=== PATIENT | female | born 2000 | race Hispanic/Latino ===

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

== ENCOUNTER 2020-05-31 22:40 | Emergency (ER) | payer OTHER ==
[2020-05-31 23:24] LABS: Absolute Lymphocytes (CBC) 5.6 K/uL (0.7-4.9); Basophils % 0.3 % (0-1.3); Lymphocytes % 42.4 % (15.3-44.8); MPV 8.3 fL (7.6-11.3)
[2020-05-31 23:40] LABS: ALT/SGPT 21 U/L (12-78); AST/SGOT 12 U/L (15-37); Albumin 4.3 g/dL (3.4-5.0); Alkaline Phosphatase 91 U/L (45-117); BUN Blood Urea Nitrogen 5 mg/dL (7-18); Bicarbonate 24 mmol/L (21-32); Bilirubin Direct < 0.1 mg/dL (0-0.2); Bilirubin Total 0.4 mg/dL (0.2-1.0); Glucose Level 97 mg/dL (74-106); Lipase 70 U/L (73-393); Potassium 3.7 mmol/L (3.5-5.1); Sodium Level 141 mmol/L (136-145)
[2020-06-01 00:39] LABS: Urine Blood 2+ (NEG); Urine Glucose NEGATIVE (NEG); Urine Protein NEGATIVE (NEG)
[2020-06-01 00:42] LABS: Urine Bacteria <20 /HPF (<20); Urine RBC <5 /HPF (NONE SEEN)
--- NOTE | 2020-06-01 00:42 | ER ---
Nurse's Notes [facility] Name: Chely Dhillon Age: 19 yrs Sex: Female : 2000 Arrival Date: 05/31/2020 Time: 22:45 Bed 23 Private MD: Diagnosis: Generalized abdominal pain;Urinary tract infection, site not specified Presentation: 05/31 22:55 Chief complaint: Patient states: For about 2 days now, I have had some urinary sg frequency and pain with urination. My job has a little clinic so I checked in to be seen there and they did a urine test and told me that everything was normal with it. Im having intermittent pain under my ribs on both sides, and it feels like acid reflux so I have been taking medication to help with that and it is not helping. no other symptoms reported for triage at this time. Coronavirus screen: Client denies travel out of the [place] in the last 14 days. At this time, the client does not indicate any symptoms associated with coronavirus-19. Ebola Screen: Patient negative for fever greater than or equal to 101.5 degrees Fahrenheit, and additional compatible Ebola Virus Disease symptoms Patient denies exposure to infectious person. Patient denies travel to an Ebola-affected area in the 21 days before illness onset. No symptoms or risks identified at this time. Initial Sepsis Screen: Does the patient meet any 2 criteria? No. Patient's initial sepsis screen is negative. Does the patient have a suspected source of infection? No. Patient's initial sepsis screen is negative. Risk Assessment: Do you want to hurt yourself or someone else? Patient reports no desire to harm self or others. Onset of symptoms was May 31, 2020. Care prior to arrival: None. Transition of care: patient was not received from another setting of care. 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 - Social history:: Smoking status: Patient denies any tobacco usage or history of. Screenin:05 Abuse screen: Denies threats or abuse. Denies injuries from another. Nutritional sf screening: No deficits noted. Tuberculosis screening: No symptoms or risk factors identified. Never had TB. Possible symptoms: None Risk factors: None. Fall Risk None identified. No fall in past 12 months (0 pts). No secondary diagnosis (0 pts). IV access (20 points). Ambulatory Aid- None/Bed Rest/Nurse Assist (0 pts). Gait- Normal/Bed Rest/Wheelchair (0 pts) Mental Status- Oriented to own ability (0 pts). Total Garcia Fall Scale indicates No Risk (0-24 pts). Assessment: 23:03 General: Appears in no apparent distress. comfortable, Behavior is calm, cooperative, sf appropriate for age. Pain: Complains of pain in left mid back, right mid back and diaphragm Pain currently is 8 out of 10 on a pain scale. Aggravated by urinating. Neuro: No deficits noted. Level of Consciousness is awake, alert, Oriented to person, place, time, situation. Cardiovascular: No deficits noted. Patient's skin is warm and dry. Respiratory: No deficits noted. Airway is patent Respiratory effort is even, unlabored, Respiratory pattern is regular, symmetrical. GI: Abdomen is non-distended, Bowel sounds present X 4 quads. Abd is soft and non tender X 4 quads. : Urine is clear, Reports burning with urination, urinary frequency, Denies discharge, urgency, vaginal bleeding, vaginal itching. 23:30 Reassessment: Called lab to add on micro to urine sample. Vital Signs: 22:55 Weight 59.87 kg (R); Height 5 ft. 1 in. (154.94 cm); sg 23:57 BP 106 / 64; Pulse 99; Resp 16; Pulse Ox 99% ; sf 06/01 00:30 BP 108 / 74; Pulse 71; Resp 16; Pulse Ox 100% ; sf 05/31 22:55 Body Mass Index 24.94 (59.87 kg, 154.94 cm) ED Course: 05/31 22:45 Patient arrived in ED. am4 22:47 Jaren Cruz PA is PHCP. aram 22:47 Miah Barrera MD is Attending Physician. jmm 22:56 Walker Martinez, ISRA is Primary Nurse. sf 22:57 Triage completed. sg 22:58 Arm band placed on. sg 23:05 Urine collected: clean catch specimen, clear. sf 23:10 Patient has correct armband on for positive identification. Placed in gown. Bed in low sf position. Call light in reach. Side rails up X 1. Door closed. Noise minimized. Visitors limited. Lights dimmed. Warm blanket given. Verbal reassurance given. 23:15 Initial lab(s) drawn, by me, sent to lab. Inserted saline lock: 20 gauge in right sf antecubital area, using aseptic technique. Blood collected. 23:21 Lipase Sent. sf 23:21 Hepatic Function Sent. sf 23:22 CBC with Diff Sent. sf 23:22 Basic Metabolic Panel Sent. sf 23:34 Urine --Ancillary (enter results) Sent. sf 23:34 Urine Dipstick--Ancillary (enter results) Sent. sf 23:35 Urine Microscopic Only Sent. sf 23:35 CT Abd/Pelvis - IV Contrast Only Sent. sf 23:49 Inserted saline lock: 20 gauge in left antecubital area, using aseptic technique. zb 03/02 00:03 IV discontinued, intact, bleeding controlled, No redness/swelling at site. Pressure sf dressing applied, Right AC IV D/C only at this time due to reports of pain. 00:04 CT Abd/Pelvis - IV Contrast Only In Process Unspecified. EDMS 00:44 No provider procedures requiring assistance completed. sf 00:58 IV discontinued, intact, bleeding controlled, No redness/swelling at site. Pressure sf dressing applied, left AC IV. Administered Medications: 00:55 Drug: Pepcid 20 mg Route: IVP; Site: left antecubital; sf 01:03 Follow up: Response: Medication administered at discharge. sf 00:56 Drug: Bentyl 20 mg Route: PO; sf 01:02 Follow up: Response: Medication administered at discharge. sf 00:56 Drug: Cephalexin 500 mg Route: PO; sf 01:02 Follow up: Response: Medication administered at discharge. Outcome: 00:41 Discharge ordered by . [facility] 01:01 Discharged to home ambulatory. sf 01:01 Condition: stable 01:01 Discharge instructions given to patient, Instructed on discharge instructions, follow up and referral plans. medication usage, Demonstrated understanding of instructions, follow-up care, medications, Prescriptions given X 3. 01:04 Patient left the ED. sf Signatures: Dispatcher [employer] EDWalker Bello, RN RN Jaren Jacobo PA PA jmm Brown, Zipporah, RN RN zb Martinez, Ashley [facility] Walker Martinez, RN RN sf
--- NOTE | 2020-06-01 00:42 | EDPHYS ---
Physician Documentation [facility] Name: Chely Dhillon Age: 19 yrs Sex: Female : 2000 Arrival Date: 05/31/2020 Time: 22:45 Bed 23 Private MD: ED Physician Miah Barrera HPI: 05/31 22:21 This 19 yrs old Female presents to ER via Ambulatory with complaints of Pain jmm With Urination, Urinary Frequency. 22:21 The patient presents with abdominal pain in the epigastric area. Onset: The jmm symptoms/episode began/occurred gradually. 23:35 The symptoms radiate to right back. Associated signs and symptoms: Pertinent positives: jmm dysuria, Pertinent negatives: fever. The symptoms are described as achy. This is a 19 year old female with a history of anemia, fibromyalgia, GERD that presents to the ED with complaints of epigastric pain for over 1 week. Denies vomiting, diarrhea, or fever. Patient developed dysuria around 0200.. 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 - Social history:: Smoking status: Patient denies any tobacco usage or history of. ROS: 23:35 Constitutional: Negative for fever, chills, and weight loss, Cardiovascular: Negative jmm for chest pain, palpitations, and edema, Respiratory: Negative for shortness of breath, cough, wheezing, and pleuritic chest pain. 23:35 Abdomen/GI: Positive for abdominal pain. 23:35 All other systems are negative. Exam: 23:35 Constitutional: This is a well developed, well nourished patient who is awake, alert, jmm and in no acute distress. Head/Face: atraumatic. Eyes: EOMI, no conjunctival erythema appreciated ENT: Moist Mucus Membranes Neck: Trachea midline, Supple Chest/axilla: Normal chest wall appearance and motion. Cardiovascular: Regular rate and rhythm. No edema appreciated Respiratory: Normal respirations, no respiratory distress appreciated 23:35 Back: Normal ROM Skin: General appearance color normal MS/ Extremity: Moves all extremities, no obvious deformities appreciated, no edema noted to the lower extremities Neuro: Awake and alert, normal gait Psych: Behavior is normal, Mood is normal, Patient is cooperative and pleasant 23:35 Abdomen/GI: Inspection: abdomen appears normal, Bowel sounds: normal, Palpation: soft, mild abdominal tenderness, in the epigastric area. Vital Signs: 22:55 Weight 59.87 kg (R); Height 5 ft. 1 in. (154.94 cm); sg 23:57 BP 106 / 64; Pulse 99; Resp 16; Pulse Ox 99% ; 06/01 00:30 BP 108 / 74; Pulse 71; Resp 16; Pulse Ox 100% ; 05/31 22:55 Body Mass Index 24.94 (59.87 kg, 154.94 cm) sg MDM: 05/31 22:51 Patient medically screened. [facility] 06/01 00:40 Data reviewed: vital signs, nurses notes. Counseling: I had a detailed discussion with [facility] the patient and/or guardian regarding: the historical points, exam findings, and any diagnostic results supporting the discharge/admit diagnosis, lab results, radiology results, the need for outpatient follow up, to return to the emergency department if symptoms worsen or persist or if there are any questions or concerns that arise at home. ED course: Patient is alert and non toxic in appearance in the ED. CT is negative. Patient is advised to follow up with GI for further evaluation. Patient understood and agrees with the plan of care. . 05/31 22:57 Order name: Basic Metabolic Panel [facility] 05/31 22:57 Order name: CBC with Diff [facility] 05/31 22:57 Order name: Hepatic Function [facility] 05/31 22:57 Order name: Lipase [facility] 05/31 23:23 Order name: Urine Dipstick--Ancillary (enter results); Complete Time: 17:19 tt3 05/31 23:23 Order name: Urine --Ancillary (enter results); Complete Time: 17:19 tt3 05/31 23:21 Order name: CT Abd/Pelvis - IV Contrast Only; Complete Time: 17:19 [facility] 05/31 23:25 Order name: CBC with Automated Diff; Complete Time: 23:32 [facility] 05/31 23:26 Order name: Urine Microscopic Only; Complete Time: 17:19 [facility] 05/31 23:40 Order name: Basic Metabolic Panel; Complete Time: 23:52 [facility] 05/31 23:40 Order name: Liver (Hepatic) Function; Complete Time: 23:52 [facility] 05/31 23:40 Order name: Lipase; Complete Time: 23:52 [facility] 06/01 00:43 Order name: Urine Culture [facility] 05/31 22:57 Order name: IV Saline Lock; Complete Time: 23:21 [facility] 05/31 22:57 Order name: Labs collected and sent; Complete Time: 23:21 [facility] 05/31 22:57 Order name: Urine Dipstick-Ancillary (obtain specimen); Complete Time: 23:08 [facility] 05/31 22:57 Order name: Urine Test (obtain specimen); Complete Time: 23:08 [facility] Administered Medications: 00:55 Drug: Pepcid 20 mg Route: IVP; Site: left antecubital; sf 01:03 Follow up: Response: Medication administered at discharge. sf 00:56 Drug: Bentyl 20 mg Route: PO; sf 01:02 Follow up: Response: Medication administered at discharge. sf 00:56 Drug: Cephalexin 500 mg Route: PO; sf 01:02 Follow up: Response: Medication administered at discharge. sf Disposition: 06:33 Co-signature as Attending Physician, Miah Barrera MD I agree with the assessment and lilly plan of care. Disposition: 06/01/20 00:41 Discharged to Home. Impression: Generalized abdominal pain, Urinary tract infection, site not specified. - Condition is Stable. - Discharge Instructions: Abdominal Pain, Adult, Urinary Tract Infection, Adult. - Prescriptions for Bentyl 20 mg Oral Tablet - take 2 tablet by ORAL route every 6 hours As needed; 40 tablet. Cephalexin 500 mg Oral Capsule - take 1 capsule by ORAL route every 8 hours for 10 days; 30 capsule. Pepcid 20 mg Oral Tablet - take 1 tablet by ORAL route once daily; 20 tablet. - Medication Reconciliation Form, Thank You Letter, Antibiotic Education, Prescription Opioid Use form. - Follow up: Private Physician; When: 2 - 3 days; Reason: Recheck today's complaints, Continuance of care, Re-evaluation by your physician. Signatures: Dispatcher [employer] EDWalker Bello, Miah Berumen RN, MD MD cha Mickail, Joel, PA PA jmm Fitzpatrick, Steven, ISRA DHALIWAL sf Corrections: (The following items were deleted from the chart) 01:04 00:41 06/01/2020 00:41 Discharged to Home. Impression: Generalized abdominal pain; sf Urinary tract infection, site not specified. Condition is Stable. Forms are Medication Reconciliation Form, Thank You Letter, Antibiotic Education, Prescription Opioid Use. Follow up: Private Physician; When: 2 - 3 days; Reason: Recheck today's complaints, Continuance of care, Re-evaluation by your physician. aram
[2020-06-01] MEDS ORDERED: CEPHALEXIN 250 MG CAP ONE (01:09)
[2020-06-01] MEDS ORDERED: FAMOTIDINE 20 MG/2 ML VIAL IV ONE (01:09)
[2020-06-01] MEDS ORDERED: DICYCLOMINE HCL 10 MG CAP ONE (01:09)
--- NOTE | 2020-06-01 10:09 | RAD REPORT ---
EXAM DESCRIPTION: CT - Abdomen Pelvis W Contrast - 06/01/2020 6:55 am CLINICAL HISTORY: 19 years Female EPIGASTRIC PAIN COMPARISON: 10/29/2019. TECHNIQUE: Contiguous axial images obtained through the abdomen and pelvis following IV contrast. Re formatted images obtained. This exam was performed according to our department optimization program which includes automated exp osure control, adjustment of the mA and/or kv according to patient size and/or use of iterative recon struction technique. FINDINGS: The lung bases are clear. There is a focal area of enhancement in the posterior liver which could be from a hemangioma. The spleen and pancreas appear unremarkable. No adrenal masses. The kidneys appear unremarkable. No hydronephrosis. The gallbladder is visualized. No aneurysmal dilatation of the aorta. No bowel obstruction. The appendix is not visualized secondary to previous appendectomy. Minimal free fluid in the pelvis likely physiologic. IMPRESSION: There is a focal area of enhancement in the posterior liver which could be from a francisco ioma. Minimal free fluid in the pelvis likely physiologic. Electronically signed by: Ruiz Borden MD 06/01/2020 12:19 AM VISUAL SUPERVISOR Due to temporary technical issues with the PACS/Fluency reporting system, reports are being signed by the in house radiologists without review as a courtesy to insure prompt reporting. The interpreting radiologist is fully responsible for the content of the report.
== END 2020-06-01 01:04 | disposition home or self-care (01) ==
LOC: ER 22:40
DX: N39.0 Urinary tract infection, site not specified (principal); K21.9 Gastro-esophageal reflux disease without esophagitis; Z91.02 Food additives allergy status; Z91.040 Latex allergy status; Z91.048 Other nonmedicinal substance allergy status
CPT/HCPCS: 87088; 85025; 87086; 80048; 36415; 81025; 80076; 87077; 87186; 83690; 74177; 96374; 99284; Q9967; 81003; 81015

== ENCOUNTER 2021-06-12 19:19 | Emergency (ER) | payer OTHER ==
--- OUTSIDE RECORDS SUMMARY | 2021-06-12 19:23 | XMS REPORT | Continuity of Care Document ---
:2000 Author Organization [facility] t Address [address] [place] [address] Care Team Providers Name Role Phone Astrid Shook Primary Care Physician Veronica Gomes Attending Clinician Unavailable Dennise Maciel MD Attending Clinician Pob, Lab Main Attending Clinician Unavailable JOSH MACIEL Attending Clinician Unavailable 2, Lab Attending Clinician Unavailable Sri DWYER Attending Clinician Doctor Unassigned, Name Attending Clinician Unavailable Payers Payer Name Policy Type Policy Number Effective Date Expiration Date S ource Problems Condition Condition Condition Status Onset Resolution Last Treating Co mments Source Name Details Category Date Date Treatment Clinician Date Disease Active Uni vers with with 3-10 [place] of inconclus[place] Med[place] viability, viability, Br anch single or single or unspecifie unspecifie d fetus d fetus Pelvic Pelvic Disease Active Univers cramping cramping 3-10 ity of in in 00:00: [place] antepartum antepartum 00 Me dical period period Branch Allergies, Adverse Reactions, Alerts Allergy Allergy Status Severity Reaction(s) Onset Inactive Treating Comm ents Source Name Type Date Date Clinician LATEX DRUG Active High Hives 2017-04 Univers INGREDI 2-07 ity of 00:00: [place] 00 Medical Branch Latex Propensi Active Rash 2017-04 Univers ty to - ity of adverse 00:00: [place] reaction 00 Medical s Branch Social History Social Habit Start Date Stop Date Quantity Comments Source ASSERTION [facility] Exposure to Not sure University SARS-CoV-2 [place] [facility] (event) Branch Alcohol intake 2021-06-09 2021-06-09 Current [facility] 00:00:00 00:00:00 non-drinker of [facility] alcohol [place] (finding) Tobacco use and 2018-03-08 2018-03-08 Never used Universit y of exposure 00:00:00 00:00:00 [facility] Sex Assigned At [birth year] Universit y of 00:00:00 00:00:00 [facility] Smoking Status Start Date Stop Date Source Never smoker [facility] Medications Ordered Filled Start Stop Current Ordering Indication Dosage Frequency Signature Comments Components Source Medication Medication Date Date Medication? Clinician (SIG) Name Name metroNIDAZO 2021- Yes [id number] 500mg Take 1 Univers LE (FLAGYL) 3-13 03-21 tablet by it y of 500 mg 00:00: 04:59 mouth 2 [place] tablet 00 :00 (two) Medical times Branch daily for 7 days. PNV 67-iron Yes [id number] 1{capsu Take 1 Univers ps-folate 3-10 le} capsule by ity of no.1-dha 00:00: mouth [place] (VITAFOL 00 daily. Medical ULTRA) 29 Branch mg iron- 1 mg-200 mg Cap PNV 67-iron Yes [id number] 1{capsu Take 1 Univers ps-folate 3-10 le} capsule by ity of no.1-dha 00:00: mouth [place] (VITAFOL 00 daily. Medical ULTRA) 29 Branch mg iron- 1 mg-200 mg Cap PNV 67-iron Yes [id number] 1{capsu Take 1 Univers ps-folate 3-10 le} capsule by ity of no.1-dha 00:00: mouth [place] (VITAFOL 00 daily. Medical ULTRA) 29 Branch mg iron- 1 mg-200 mg Cap norelgestro 2021- No 1{patch Apply 1 Univers min-ethinyl 8-18 03-10 } Patch to ity of estradiol 00:00: 00:00 skin [place] 150-35 00 :00 weekly. Medical mcg/24 hr Branch patch ondansetron 2019-04- No [id number] 8mg Take 1 Univers (ZOFRAN 1-23 03-10 tablet by ity of ODT) 8 mg 00:00: 00:00 mouth [place] disintegrat 00 :00 every 8 Medic al ing tablet (eight) Branch hours as needed for Nausea and Vomiting (N/V). fluticasone 2018-04 Yes [id number] 2{spray Use 2 Univers propionate 0-08 } Sprays in ity of 50 00:00: each [place] mcg/actuati 00 nostril Medic al on nasal daily. Branch spray fluticasone 2018-04 Yes [id number] 2{spray Use 2 Univers propionate 0-08 } Sprays in ity of 50 00:00: each [place] mcg/actuati 00 nostril Medic al on nasal daily. Branch spray fluticasone 2018-04 Yes [id number] 2{spray Use 2 Univers propionate 0-08 } Sprays in ity of 50 00:00: each [place] mcg/actuati 00 nostril Medic al on nasal daily. Branch spray hydrOXYzine 2021- No [id number] 25mg Take 1 Univers 25 mg 7-30 03-10 tablet by ity of tablet 00:00: 00:00 mouth [place] 00 :00 every 8 Medical (eight) Branch hours as needed for Itching. gabapentin 2021- No 200mg Take 200 U nivers 100 mg 9-20 03-10 mg by ity of capsule 00:00: 00:00 mouth. [place] 00 :00 Medical Branch cyclobenzap 2021- No 5mg Take 5 mg Univers rine 5 mg 9-20 03-10 by mouth. ity of tablet 00:00: 00:00 [place] 00 :00 Medical Branch Immunizations Ordered Filled Immunization Date Status Comments Sour e Immunization Name Name Influenza Virus 2021-06-09 Completed Universit y of Vaccine Quad IM, 00:00:00 [place] Me dical Preserv and ABX Branch Free 6 MO-64 YRS Influenza Virus 2021-06-09 Completed Universit y of Vaccine Quad IM, 00:00:00 [facility] dical Preserv and ABX Branch Free 6 MO-64 YRS Influenza Virus 2021-06-09 Completed Universit y of Vaccine Quad IM, 00:00:00 [facility] dical Preserv and ABX Branch Free 6 MO-64 YRS Influenza Virus 2013-02-10 Completed Universit y of Vaccine (3+ yrs) 00:00:00 [facility] dicpr Branch Influenza Virus 2013-02-10 Completed Universit y of Vaccine (3+ yrs) 00:00:00 [facility] dical Branch Influenza Virus 2013-02-10 Completed Universit y of Vaccine (3+ yrs) 00:00:00 [facility] Vital Signs Vital Name Observation Time Observation Value Comments Source Systolic blood 2021-06-09 15:41:00 129 mm[Hg] [facility] sity of [facility] Diastolic blood 2021-06-09 15:41:00 84 mm[Hg] [facility] 2021-06-09 15:41:00 78 /min [facility] Body temperature 2021-06-09 15:41:00 36.83 Adelia [facility] Respiratory rate 2021-06-09 15:41:00 18 /min [facility] Body height 2021-06-09 15:41:00 154.9 cm [facility] Body weight 2021-06-09 15:41:00 66.225 kg [facility] BMI 2021-06-09 15:41:00 27.59 kg/m2 [facility] Procedures Procedure Date / Time Performed Performing Clinician [facility] FLU VACC (), 2021-06-09 16:00:37 Dennise Maciel [facility] 2-64 YRS, .5ML, IM, Medical Bran ch QUAD (FLUCELVAX) Plan of Care Planned Activity Planned Date Details Comments Source Encounters Start End Encounter Admission Attending Care Care Encounter Source Date/Time Date/Time Type Type Clinicians Facility Department ID 2021-05-10 Outpatient Eliseo, STLMLC STLM [id number] [facility] 08:15:04 [facility] 2021-04-27 Outpatient Snyder, STLMLC STLMLC [id number] [facility] 14:26:00 [id number] 2021-06-12 2021-06-12 Case Dennise Maciel [facility] [id number] Univers 00:00:00 00:00:00 Management Josh NUGENT [id number] ity [id number] PROF[place] [phone] Sc dical NAL [facility] 2021-06-11 2021-06-11 Laser Operator Joe, Adc Lab Main [facility] [id number] Univers 10:00:00 10:15:00 Visit Dennise Maciel [id number] [id number] [phone] Sc dical NAL [facility] 2021-06-11 2021-06-11 Outpatient R DENNISE MACIEL [facility] [id number] Univers 10:00:00 10:00:00 ity of [facility] 2021-06-09 2021-06-09 Office Dennise Maciel [facility] [id number] Univers 09:30:00 10:15:20 Visit Josh NUGENT [id number] i [id number] PROF[place] [phone] Sc dical NAL [facility] 2021-06-09 2021-06-09 Outpatient R DENNISE MACIEL [facility] [id number] Univers 09:30:00 10:15:20 ity of [facility] 2021-05-09 2021-05-09 ambulatory STLMLC [facility]C [id number] [facility] 2021-05-03 2021-05-03 ambulatory STLMLC [facility] [id number] [facility] 2021-03-17 2021-03-17 ambulatory STLMLC [facility]LMLC [id number] [facility] 00:[facility]00 Evaristo Brynn [facility] 2019-10-20 2019-10-20 Laser Operator 2, Adc Lab [facility] [id number] 09:34:48 09:49:48 Visit James [id number] Ailyn [id number] Professio [phone] [facility] 353 [facility] 2019-10-20 2019-10-20 Office Sri [facility] [id number] 08:02:01 08:58:39 Visit Diamond Nugent [id number] [place] [id number] Professio [phone] [facility] 134 [facility] 2019-10-20 2019-10-20 Orders Doctor DERRICK [id number] 00:00:00 00:00:00 Only Unassigned, POLLO [id number] [place] [facility] [phone] [id number] Results This patient has no known results.
[2021-06-12 19:52] LABS: Urine Blood Negative (Negative); Urine Glucose Negative (Negative); Urine Protein Negative (Negative); Urine Specific Gravity 1.015 (1.005-1.030); Urine pH 7.5 (5.0-7.0)
[2021-06-12] MEDS ORDERED: MORPHINE 2 MG/ML SYR ONE (20:10)
[2021-06-12] MEDS ORDERED: NA CHLORIDE 0.9% 1,000 ML ONE (20:10)
[2021-06-12] MEDS ORDERED: ONDANSETRON 4 MG/2 ML VIAL ONE (20:10)
[2021-06-12 20:23] LABS: Absolute Lymphocytes (CBC) 3.8 K/uL (0.7-4.9); Hematocrit 37.2 % (36.0-45.0); Lymphocytes % 44.3 % (15.3-44.8); MPV 8.2 fL (7.6-11.3)
[2021-06-12 20:50] LABS: BUN Blood Urea Nitrogen 6 mg/dL (7-18); Bicarbonate 25 mmol/L (21-32); Glucose Level 92 mg/dL (74-106); Potassium 3.6 mmol/L (3.5-5.1); Sodium Level 139 mmol/L (136-145)
[2021-06-12 21:21] LABS: HCG, Quantitative 500 mIU/mL (1-3)
--- NOTE | 2021-06-12 21:25 | RAD REPORT ---
EXAM DESCRIPTION: US - Transvaginal OB - 06/12/2021 9:11 pm CLINICAL HISTORY: PAIN COMPARISON: No comparisons FINDINGS: Small collection of fluid within the endometrial canal measuring 4 millimeters. No yolk sa c or pole identified. If a gestational sac, it would be consistent with 5 weeks 0 days but ther e is no definite dedicual reaction. The left ovary has volume of 13.7 cc and demonstrates blood flow. The right ovary was not visualized. IMPRESSION: Possible early gestational sac which would measure 5 weeks 0 days but the imaging featur es are not conclusive. Recommend correlation with beta HCG and could consider a short term follow-up in 1-2 weeks.
--- NOTE | 2021-06-12 22:22 | ER ---
Nurse's Notes [facility] Name: Chely Dhillon Age: 20 yrs Sex: Female : 2000 Arrival Date: 06/12/2021 Time: 19:27 Bed 24 Private MD: Diagnosis: Less than 8 weeks gestation of ;Nausea Presentation: 06/12 19:36 Chief complaint: Patient states: "I've been having abdominal cramping and pelvic pain, ab2 I just found out I am 6 weeks ." Pt states this is first . Pt denies any vaginal bleeding or discharge. Coronavirus screen: Vaccine status: Patient reports receiving the 2nd dose of the covid vaccine. Client denies travel out of the [place] in the last 14 days. At this time, the client does not indicate any symptoms associated with coronavirus-19. Ebola Screen: Patient negative for fever greater than or equal to 101.5 degrees Fahrenheit, and additional compatible Ebola Virus Disease symptoms Patient denies exposure to infectious person. Patient denies travel to an Ebola-affected area in the 21 days before illness onset. No symptoms or risks identified at this time. Initial Sepsis Screen: Does the patient meet any 2 criteria? No. Patient's initial sepsis screen is negative. Does the patient have a suspected source of infection? No. Patient's initial sepsis screen is negative. Risk Assessment: Do you want to hurt yourself or someone else? Patient reports no desire to harm self or others. Onset of symptoms is unknown. 19:36 Method Of Arrival: Ambulatory ab2 19:36 Acuity: MIRTHA 3 ab2 Triage Assessment: 19:39 General: Appears in no apparent distress. uncomfortable, Behavior is calm, cooperative, ab2 appropriate for age. Pain: Complains of pain in suprapubic area. GI: Abdomen is round non-distended, Reports nausea. 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 - Social history:: Smoking status: Patient denies any tobacco usage or history of. Screenin:42 Abuse screen: Denies threats or abuse. Nutritional screening: No deficits noted. lr4 Tuberculosis screening: No symptoms or risk factors identified. Fall Risk None identified. Assessment: 19:41 General: Appears in no apparent distress. comfortable, Behavior is calm, cooperative. lr4 Pain: Complains of pain in abdomen Pain currently is 5 out of 10 on a pain scale. Quality of pain is described as crampy. Neuro: No deficits noted. Cardiovascular: No deficits noted. Respiratory: No deficits noted. GI: Bowel sounds present X 4 quads. Abd is soft and non tender X 4 quads. Vital Signs: 19:36 BP 127 / 79; Pulse 82; Resp 18; Temp 98.8(TE); Pulse Ox 100% on R/A; Weight 65.77 kg; ab2 Height 5 ft. 1 in. (154.94 cm); Pain 0/10; 22:24 BP 103 / 57; Pulse 67; Resp 17; Pulse Ox 99% on R/A; lr4 19:36 Body Mass Index 27.40 (65.77 kg, 154.94 cm) ab2 ED Course: 19:27 Patient arrived in ED. wm 19:38 Triage completed. ab2 19:39 Arm band placed on right wrist. ab2 19:40 Frank Sheppard MD is Attending Physician. 7 19:41 Cielo Rosado RN is Primary Nurse. lr4 19:42 No provider procedures requiring assistance completed. lr4 19:44 Patient has correct armband on for positive identification. Bed in low position. Call lr4 light in reach. Side rails up X 1. 19:52 Urine Dipstick-Ancillary Sent. lr4 19:56 Inserted saline lock: 20 gauge in right antecubital area, using aseptic technique. lr4 20:11 HCG, Quantitative Sent. ab2 20:11 ABO/RH typing Sent. ab2 20:11 Basic Metabolic Panel Sent. ab2 20:11 Abo/rh Typing Sent. ab2 20:11 Basic Metabolic Panel Sent. ab2 20:11 Quantitative Hcg Sent. ab2 20:11 CBC with Diff Sent. ab2 21:11 US Transvaginal Ob In Process Unspecified. EDMS 22:20 Moses Raya MD is Referral Physician. [facility] 22:24 IV discontinued, intact, bleeding controlled, No redness/swelling at site. Pressure lr4 dressing applied. Administered Medications: 20:11 Drug: NS 0.9% 1000 ml Route: IV; Rate: 1000 ml; Site: right antecubital; ab2 22:30 Follow up: IV Status: Order to discontinue infusion; IV Intake: 400ml lr4 20:11 Drug: Zofran (Ondansetron) 4 mg Route: IVP; Site: right antecubital; ab2 20:51 Follow up: Response: Nausea is decreased lr4 20:11 Drug: morphine 2 mg Route: IVP; Site: right antecubital; ab2 20:52 Follow up: Response: Pain is decreased lr4 Intake: 22:30 IV: 400ml; Total: 400ml. lr4 Outcome: 19:42 Condition: stable lr4 22:21 Discharge ordered by . [facility] 22:24 Discharged to home ambulatory. lr4 22:24 Discharge instructions given to patient, family. 22:30 Patient left the ED. lr4 Signatures: Dispatcher [employer] Frank Cartwright MD MD [facility] Marine Zheng Alexis 2 Cielo Rosado, RN RN lr4 Corrections: (The following items were deleted from the chart) 19:39 19:38 Home Meds: Nexplanon Implant for Family Planning; ab2 ab2 19:39 19:38 PMHx: GERD; ab2 ab2 19:44 19:43 Home Meds: Nexplanon Implant for Family Planning; lr4 lr4
--- NOTE | 2021-06-12 22:22 | EDPHYS ---
Physician Documentation [facility] Name: Chely Dhillon Age: 20 yrs Sex: Female : 2000 Arrival Date: 06/12/2021 Time: 19:27 Bed 24 Private MD: ED Physician Frank Sheppard HPI: 06/12 19:58 This 20 yrs old Female presents to ER via Ambulatory with complaints of mh7 Abdominal Pain, 6WKS. 19:58 The patient presents to the emergency department with abdominal pain, of the suprapubic mh7 area, that started 5 day(s) ago, nausea. The estimated gestational age is 6 weeks. course: care: private OB physician, the patient's last check was June 07, 2021, Leakage of Fluid: none appreciated, Ultrasound: the patient has not had an ultrasound, Risk/complications: no obvious risks or complications are appreciated. Previous pregnancies: the patient has never been . Associated signs and symptoms: Pertinent negatives: chest pain, diarrhea, dysuria, fever, frequency, ruptured membranes, seizure, shortness of breath, vaginal bleeding, vaginal discharge, vomiting. The patient has been recently seen by a physician: an security rover specialist, 5 day(s) ago. 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 - Social history:: Smoking status: Patient denies any tobacco usage or history of. ROS: 19:58 Constitutional: Negative for fever, chills, and weight loss, Eyes: Negative for injury, mh7 pain, redness, and discharge, ENT: Negative for injury, pain, and discharge, Neck: Negative for injury, pain, and swelling, Cardiovascular: Negative for chest pain, palpitations, and edema, Respiratory: Negative for shortness of breath, cough, wheezing, and pleuritic chest pain, Back: Negative for injury and pain, : Negative for injury, bleeding, discharge, and swelling, MS/Extremity: Negative for injury and deformity, Skin: Negative for injury, rash, and discoloration, Neuro: Negative for headache, weakness, numbness, tingling, and seizure, Psych: Negative for depression, anxiety, suicide ideation, homicidal ideation, and hallucinations, Allergy/Immunology: Negative for hives, rash, and allergies, Endocrine: Negative for neck swelling, polydipsia, polyuria, polyphagia, and marked weight changes, Hematologic/Lymphatic: Negative for swollen nodes, abnormal bleeding, and unusual bruising. Exam: 19:58 Constitutional: This is a well developed, well nourished patient who is awake, alert, mh7 and in no acute distress. Head/Face: Normocephalic, atraumatic. Eyes: Pupils equal round and reactive to light, extra-ocular motions intact. Lids and lashes normal. Conjunctiva and sclera are non-icteric and not injected. Cornea within normal limits. Periorbital areas with no swelling, redness, or edema. Neck: Trachea midline, no thyromegaly or masses palpated, and no cervical lymphadenopathy. Supple, full range of motion without nuchal rigidity, or vertebral point tenderness. No Meningismus. Chest/axilla: Normal chest wall appearance and motion. Nontender with no deformity. No lesions are appreciated. Cardiovascular: Regular rate and rhythm with a normal S1 and S2. No gallops, murmurs, or rubs. Normal PMI, no JVD. No pulse deficits. Respiratory: Lungs have equal breath sounds bilaterally, clear to auscultation and percussion. No rales, rhonchi or wheezes noted. No increased work of breathing, no retractions or nasal flaring. Abdomen/GI: Soft, non-tender, with normal bowel sounds. No distension or tympany. No guarding or rebound. No evidence of tenderness throughout. Back: No spinal tenderness. No costovertebral tenderness. Full range of motion. Skin: Warm, dry with normal turgor. Normal color with no rashes, no lesions, and no evidence of cellulitis. MS/ Extremity: Pulses equal, no cyanosis. Neurovascular intact. Full, normal range of motion. Neuro: Awake and alert, GCS 15, oriented to person, place, time, and situation. Cranial nerves II-XII grossly intact. Motor strength 5/5 in all extremities. Sensory grossly intact. Cerebellar exam normal. Normal gait. Psych: Awake, alert, with orientation to person, place and time. Behavior, mood, and affect are within normal limits. 19:58 : CVA tenderness, is absent, Pelvic Exam: The exam is refused by the [facility] patient/guardian. The risks and consequences are understood by the patient, Bladder: is normal. Vital Signs: 19:36 BP 127 / 79; Pulse 82; Resp 18; Temp 98.8(TE); Pulse Ox 100% on R/A; Weight 65.77 kg; ab2 Height 5 ft. 1 in. (154.94 cm); Pain 0/10; 22:24 BP 103 / 57; Pulse 67; Resp 17; Pulse Ox 99% on R/A; lr4 19:36 Body Mass Index 27.40 (65.77 kg, 154.94 cm) ab2 MDM: 22:18 Differential diagnosis: threatened Ab, inevitable Ab, complete Ab, retained Ab, septic mh7 Ab, missed Ab, ectopic . Data reviewed: vital signs, nurses notes, lab test result(s), Beta HCG: CBC, electrolytes, Rh: positive urinalysis, radiologic studies, ultrasound. Data interpreted: Pulse oximetry: on room air is 100 %. Interpretation: normal. Counseling: I had a detailed discussion with the patient and/or guardian regarding: the historical points, exam findings, and any diagnostic results supporting the discharge/admit diagnosis, lab results, radiology results, the need for outpatient follow up, an OB/Gyne specialist, to return to the emergency department if symptoms worsen or persist or if there are any questions or concerns that arise at home. Response to treatment: the patient's symptoms have resolved after treatment, the patient's blood pressure is in an acceptable range, mental status has returned to baseline, the patient no longer shows bradycardia, the patient is not short of breath, the patient is not tachycardic, the patient's pain is gone, the patient's temperature has normalized, the patient is now symptom free, patient is well hydrated. 22:21 Patient medically screened. [facility] 06/12 19:51 Order name: Urine Dipstick-Ancillary; Complete Time: 19:53 EDMS 06/12 19:56 Order name: Abo/rh Typing [facility] 06/12 19:56 Order name: Basic Metabolic Panel [facility] 06/12 19:56 Order name: CBC with Diff; Complete Time: 21:37 [facility] 06/12 19:56 Order name: Quantitative Hcg [facility] 06/12 19:57 Order name: ABO/RH typing; Complete Time: 21:37 [facility] 06/12 19:56 Order name: IV Saline Lock; Complete Time: 19:57 [facility] 06/12 19:57 Order name: Basic Metabolic Panel; Complete Time: 21:37 EDMS 06/12 19:57 Order name: HCG, Quantitative; Complete Time: 21:37 EDPA 06/12 19:58 Order name: US Transvaginal Ob; Complete Time: 21:37 [facility] 06/12 21:09 Order name: Urine --Ancillary (enter results) [facility] 06/12 19:56 Order name: Labs collected and sent; Complete Time: 19:57 [facility] 06/12 19:56 Order name: NPO; Complete Time: 19:57 [facility] 06/12 19:56 Order name: Urine Dipstick-Ancillary (obtain specimen); Complete Time: 19:57 [facility] 06/12 19:56 Order name: Urine Test (obtain specimen); Complete Time: 19:57 [facility] Administered Medications: 20:11 Drug: NS 0.9% 1000 ml Route: IV; Rate: 1000 ml; Site: right antecubital; ab2 22:30 Follow up: IV Status: Order to discontinue infusion; IV Intake: 400ml lr4 20:11 Drug: Zofran (Ondansetron) 4 mg Route: IVP; Site: right antecubital; ab2 20:51 Follow up: Response: Nausea is decreased lr4 20:11 Drug: morphine 2 mg Route: IVP; Site: right antecubital; ab2 20:52 Follow up: Response: Pain is decreased lr4 Disposition Summary: 06/12/21 22:21 Discharge Ordered Location: Home mh Problem: new mh7 Symptoms: have improved mh7 Condition: Stable mh7 Diagnosis - Less than 8 weeks gestation of mh7 - Nausea mh7 Followup: 7 - With: Private Physician - When: 1 - 2 days - Reason: Worsening of condition, Recheck today's complaints, Continuance of care, Re-evaluation by your physician Followup: [facility] - With: Moses Raya MD - When: 1 - 2 days - Reason: Worsening of condition, Recheck today's complaints Discharge Instructions: - Discharge Summary Sheet 7 - Abdominal Pain During [facility] - Nausea, Adult [facility] Forms: - Medication Reconciliation Form [facility] - Thank You Letter [facility] - Antibiotic Education [facility] - Prescription Opioid Use [facility] - Work release form lr4 Prescriptions: - ondansetron 4 mg Oral tablet,disintegrating - place 1 tablet by TRANSLINGUAL route every 8 hours As needed; 10 tablet; [facility] Refills: 0, Product Selection Permitted Signatures: Dispatcher [employer] EDFrank Mike MD MD 7 Toy Adamson 2 Cielo Rosado, RN RN lr4 Corrections: (The following items were deleted from the chart) 19:39 19:38 Home Meds: Nexplanon Implant for Family Planning; ab2 ab2 19:39 19:38 PMHx: GERD; ab2 ab2 19:44 19:43 Home Meds: Nexplanon Implant for Family Planning; lr4 lr4
[2021-06-12 23:17] VITALS: BP 103/57; O2SAT 99
[2021-06-12 23:24] VITALS: TEMP 98.8
[2021-06-12 23:50] LABS: Urine Specific Gravity/Preg 1.015 (1.005-1.030)
== END 2021-06-12 22:30 | disposition home or self-care (01) ==
LOC: ER 19:19
DX: O26.891 Other specified pregnancy related conditions, first trimester (principal); Z3A.01 Less than 8 weeks gestation of pregnancy; Z91.018 Allergy to other foods; Z91.040 Latex allergy status; Z91.048 Other nonmedicinal substance allergy status
CPT/HCPCS: 96361; 85025; 80048; 36415; 86900; 81025; 86901; 84702; 81003; 76817; 96375; 96374; 99284; J2270; J7030; J2405

== ENCOUNTER 2021-07-22 22:00 | Emergency (ER) | payer OTHER ==
--- OUTSIDE RECORDS SUMMARY | 2021-07-22 22:04 | XMS REPORT | Continuity of Care Document ---
:2000 Author Organization [facility] t Address [address] [place] [address] Care Team Providers Name Role Phone MARSHALL NATHALY Primary Care Physician Unavailable Veronica Gomes Attending Clinician Unavailable 2, Adc Lab Attending Clinician Unavailable Josh Maciel MD Attending Clinician JOSH MACIEL Attending Clinician Unavailable Pob, Lab Main Attending Clinician Unavailable Sri DWYER Attending Clinician [...] Propensi Active Rash 2017-04 Univers ty to 2-07 ity of adverse 00:00: [place] reaction Medical s Branch Social History Social Habit Start Date Stop Date Quantity Comments Source [facility] Exposure to Not sure [facility] SARS-CoV-2 [place] [facility] (event) Branch Alcohol intake 2021-06-09 2021-06-09 Current [facility] 00:00:00 00:00:00 non-drinker of [facility] alcohol [place] (finding) Tobacco use and 2018-03-08 2018-03-08 Never used Universit y of exposure 00:00:00 00:00:00 [facility] Sex Assigned At [birth year] Universit y of 00:00:00 00:00:00 [facility] Smoking Status Start Date Stop Date Source Never smoker [facility] Medications Ordered Filled Start Stop Current Ordering Indication Dosage Frequency Signature Comments Components Source Medication Medication Date Date Medication? Clinician (SIG) Name Name metroNIDAZO 2021- Yes [id number] 500mg Take 1 Univers LE (FLAGYL) 3-13 03-21 tablet by it y of 500 mg 00:00: 04:59 mouth 2 [place] tablet 00 :00 (two) Medical times [place] daily for 7 days. metroNIDAZO 2021- Yes [id number] 500mg Take 1 Univers LE (FLAGYL) 3-13 03-21 tablet by it y of 500 mg 00:00: 04:59 mouth 2 [place] tablet 00 :00 (two) Medical times [place] daily for 7 days. PNV 67-iron Yes [id number] 1{capsu Take 1 Univers ps-folate 3-10 le} capsule by ity of no.1-dha 00:00: mouth [place] (VITAFOL 00 daily. Medical ULTRA) 29 Branch mg iron- 1 mg-200 mg Cap PNV 67-iron Yes [id number] 1{capsu Take 1 Univers ps-folate 3-10 le} capsule by ity of no.1-dha 00:00: mouth [place] (VITAFOL 00 daily. Medical ULTRA) 29 Branch mg iron- 1 mg-200 mg Cap PNV 67-iron Yes [id number] 1{capsu Take 1 Univers ps-folate 3-10 le} capsule by ity of no.1-dha 00:00: mouth [place] (VITAFOL 00 daily. Medical ULTRA) 29 Branch mg iron- 1 mg-200 mg Cap PNV 67-iron Yes [id number] 1{capsu Take 1 Univers ps-folate 3-10 le} capsule by ity of no.1-dha 00:00: mouth [place] (VITAFOL 00 daily. Medical ULTRA) 29 Branch mg iron- 1 mg-200 mg Cap norelgestro 2021- No 1{patch Apply 1 Univers min-ethinyl 8-18 03-10 } Patch to ity of estradiol 00:00: 00:00 skin [place] 150-35 00 :00 weekly. Medical mcg/24 hr Branch patch ondansetron 2019-04- No [id number] 8mg Take 1 Univers (ZOFRAN 1-23 03-10 tablet by ity of ODT) 8 mg 00:00: 00:00 mouth [place] disintegrat 00 :00 every 8 Medic al ing tablet (eight) Branch hours as needed for Nausea and Vomiting (N/V). fluticasone 2018-04 Yes [id number] 2{spray Use 2 Univers propionate 0-08 } Sprays in ity of 50 00:00: each [place] mcg/actuati 00 nostril Medic al on nasal daily. Branch spray fluticasone 2018-04 Yes [id number] 2{spray Use 2 Univers propionate 0-08 } Sprays in ity of 50 00:00: each [place] mcg/actuati 00 nostril Medic al on nasal daily. Branch spray fluticasone 2018-04 Yes [id number] 2{spray Use 2 Univers propionate 0-08 } Sprays in ity of 50 00:00: each [place] mcg/actuati 00 nostril Medic al on nasal daily. Branch spray fluticasone 2018-04 Yes [id number] 2{spray Use 2 Univers propionate 0-08 } Sprays in ity of 50 00:00: each [place] mcg/actuati 00 nostril Medic al on nasal daily. Branch spray hydrOXYzine 2021- No [id number] 25mg Take 1 Univers 25 mg 7-30 03-10 tablet by ity of tablet 00:00: 00:00 mouth [place] 00 :00 every 8 Medical (eight) Branch hours as needed for Itching. gabapentin 2021- No 200mg Take 200 U nivers 100 mg 12-20-10 mg by ity of capsule 00:00: 00:00 mouth. [place] 00 :00 Medical Branch cyclobenzap 2021- No 5mg Take 5 mg Univers rine 5 mg 12-20-10 by mouth. ity of tablet 00:00: 00:00 [place] 00 :00 Medical Branch Immunizations Ordered Filled Immunization Date Status Comments [facility] e Immunization Name Name Influenza Virus 2021-06-09 Completed Universit y of Vaccine Quad IM, 00:00:00 [facility] dical Preserv and ABX Branch Free 6 MO-64 YRS Influenza Virus 2021-06-09 Completed Universit y of Vaccine Quad IM, 00:00:00 [facility] dical Preserv and ABX Branch Free 6 MO-64 YRS Influenza Virus 2021-06-09 Completed Universit y of Vaccine Quad IM, 00:00:00 [facility] dical Preserv and ABX Branch Free 6 MO-64 YRS Influenza Virus 2021-06-09 Completed Universit y of Vaccine Quad IM, 00:00:00 [facility] dical Preserv and ABX Branch Free 6 MO-64 YRS Influenza Virus 2013-02-10 Completed Universit y of Vaccine (3+ yrs) 00:00:00 [facility] Influenza Virus 2013-02-10 Completed Universit y of Vaccine (3+ yrs) 00:00:00 [facility] Influenza Virus 2013-02-10 Completed Universit y of Vaccine (3+ yrs) 00:00:00 [facility] Influenza Virus 2013-02-10 Completed Universit y of Vaccine (3+ yrs) 00:00:00 [facility] Vital Signs Vital Name Observation Time Observation Value Comments Source Systolic blood 2021-06-09 15:41:00 129 mm[Hg] Univer sity of pressure [facility] Diastolic blood 2021-06-09 15:41:00 84 mm[Hg] Unive rsity of pressure [facility] Heart rate 2021-06-09 15:41:00 78 /min Universi ty [facility] Body temperature 2021-06-09 15:41:00 36.83 Adelia [facility] Respiratory rate 2021-06-09 15:41:00 18 /min [facility] Body height 2021-06-09 15:41:00 154.9 cm [facility] Body weight 2021-06-09 15:41:00 66.225 kg [facility] BMI 2021-06-09 15:41:00 27.59 kg/m2 [facility] Procedures Procedure Date / Time Performed Performing Clinician Sourc e FLU VACC (), 2021-06-09 16:00:37 Dennise Maciel [facility] 2-64 YRS, .5ML, IM, Medical Bran ch QUAD (FLUCELVAX) Encounters Start End Encounter Admission Attending Care Care Encounter Source Date/Time Date/Time Type Type Clinicians Facility Department ID 2021-06-13 Outpatient Eliseo, STLMLC STLMLC [id number] [facility] 14:26:01 [facility] 2021-05-10 Outpatient Eliseo, STLMLC STLMLC [id number] [facility] 08:15:04 [facility] 2021-04-27 Outpatient Eliseo, STLMLC STLMLC [id number] [facility] 14:26:00 Veronica 73457 [facility] 2021-06-15 2021-06-15 ambulatory STLMLC ST[facility]MLC [id number] [facility]00 [facility] 2021-06-13 2021-06-13 [address], Adc Lab [facility] [id number] [facility] 09:15:00 09:30:00 Visit [facility] [place] [id number] [id number] Rohit galeano PROFESSIO [phone] [address] 2021-06-13 2021-06-13 Outpatient R DENNISE MACIEL [facility] [id number] [facility] 09:15:00 09:15:00 ity [facility] 2021-06-12 2021-06-12 Case Dennise Maciel [facility] [id number] Univers 00:00:00 00:00:00 Management Josh NUGENT [id number] ity [facility] [id number] [place] [phone] Wi dicwale NAL [address] [facility] 2021-06-11 2021-06-11 [address] Joe, Adc Lab [place] [id number] Univers 10:00:00 10:15:00 Visit Dennise Maciel [id number] ity of [facility] [id number] [place] [phone] Wi dicwale NAL [address] [facility] 2021-06-11 2021-06-11 Outpatient R DENNISE MACIEL [facility] [id number] Univers 10:00:00 10:00:00 ity of [facility] 2021-06-09 2021-06-09 Office [facility] [id number] Univers 09:30:00 10:15:20 Visit Josh NUGENT [id number] i ty of [facility] [id number] [place] [phone] Wi dicwale NAL [address] [facility] 2021-06-09 2021-06-09 Outpatient R DENNISE MACIEL [facility] [id number] Univers 09:30:00 10:15:20 ity of [facility] 2021-05-09 2021-05-09 ambulatory STLMLC [facility]MLC [id number] [facility] 2021-05-03 2021-05-03 ambulatory [facility]LMLC [facility] [id number] [facility] 2021-03-17 2021-03-17 ambulatory STLMLC [facility]C [id number] [facility] 2019-10-20 2019-10-20 [address], Adc Lab [facility] [id number] 09:34:48 09:49:48 Visit James [id number] Ailyn [id number] Beatrice [phone] [facility] [address] [facility] 2019-10-20 2019-10-20 Office MARIA DEL CARMEN [place] [id number] 08:02:01 08:58:39 Visit Diamond James [id number] Ailyn [id number] Beatrice [phone] [facility] [address] [facility] 2019-10-20 2019-10-20 Orders Doctor MEZA [id number] 00:00:00 00:00:00 Only Unassigned, POLLO [id number] [place] [facility] [phone] [id number] Results This patient has no known results.
[2021-07-22 22:59] LABS: Urine Blood Negative (Negative); Urine Glucose Negative (Negative); Urine Protein Negative (Negative); Urine Specific Gravity 1.015 (1.005-1.030)
[2021-07-22 23:27] LABS: Absolute Lymphocytes (CBC) 3.6 K/uL (0.7-4.9); Hematocrit 36.3 % (36.0-45.0); Lymphocytes % 31.4 % (15.3-44.8); MPV 8.1 fL (7.6-11.3); RBC Red Blood Cell Count 4.05 M/uL (3.86-4.86)
[2021-07-22 23:47] LABS: BUN Blood Urea Nitrogen 7 mg/dL (7-18); Bicarbonate 24 mmol/L (21-32); Glucose Level 91 mg/dL (74-106); Potassium 3.8 mmol/L (3.5-5.1); Sodium Level 137 mmol/L (136-145)
--- NOTE | 2021-07-22 23:51 | ER ---
Nurse's Notes [facility] Name: Chely Dhillon Age: 20 yrs Sex: Female : 2000 Arrival Date: 07/22/2021 Time: 22:03 Bed 18 Private MD: Diagnosis: Pelvic and perineal pain Presentation: 07/22 22:22 Chief complaint: Patient states: "pelvic pain started 3 days ago, not too bad 08/09 but ke1 since it is my first i don't if the pain is normal." Patient 10 weeks . Coronavirus screen: Vaccine status: Patient reports receiving the 2nd dose of the covid vaccine. Ebola Screen: No symptoms or risks identified at this time. Initial Sepsis Screen: Does the patient meet any 2 criteria? No. Patient's initial sepsis screen is negative. Does the patient have a suspected source of infection? No. Patient's initial sepsis screen is negative. Risk Assessment: Do you want to hurt yourself or someone else? Patient reports no desire to harm self or others. Onset of symptoms was July 19, 2021. 22:22 Method Of Arrival: Ambulatory ke 22:22 Acuity: MIRTHA 4 ke1 Triage Assessment: 22:40 General: Appears in no apparent distress. Behavior is appropriate for age. Pain: ke1 Complains of pain in pelvis Pain currently is 5 out of 10 on a pain scale. at worst was 5 out of 10 on a pain scale. level that patient reports is acceptable is 6 out of 10 on a pain scale. 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 - Social history:: Smoking status: Patient denies any tobacco usage or history of. Screenin:30 Abuse screen: Denies threats or abuse. Nutritional screening: No deficits noted. ke1 Tuberculosis screening: No symptoms or risk factors identified. Fall Risk No fall in past 12 months (0 pts). No secondary diagnosis (0 pts). No IV (0 pts). Ambulatory Aid- None/Bed Rest/Nurse Assist (0 pts). Gait- Normal/Bed Rest/Wheelchair (0 pts) Mental Status- Oriented to own ability (0 pts). Total Garcia Fall Scale indicates No Risk (0-24 pts). Assessment: 22:42 Reassessment: The pt was recv'd to room #18 \\T\\ 4125. I will assess her dana. She sharif appeared in NAD from the doorway. 23:21 Reassessment: Patient appears in no apparent distress at this time. Orders completed. sharif The pt reports "occasionally it feels like cramps...no, no bleeding...just today" The pt is pleasant and cooperative. She is in NAD. Vital Signs: 22:22 BP 113 / 70; Pulse 81; Resp 18; Temp 98(O); Pulse Ox 100% ; Weight 65.77 kg; Height 5 ke1 ft. 1 in. (154.94 cm); Pain 5/10; 23:59 BP 112 / 68; Pulse 78; Resp 18; Pulse Ox 100% on R/A; Pain 00/10; sharif 22:22 Body Mass Index 27.40 (65.77 kg, 154.94 cm) ke1 ED Course: 22:03 Patient arrived in ED. kz 22:04 Jaren Cruz PA is PHCP. [facility] 22:04 Dg Larson MD is Attending Physician. [facility] 22:25 Triage completed. ke1 22:42 Afia Thompson, ISRA is Primary Nurse. sharif 23:21 US 1st Trimest Single 1st Fetus In Process Unspecified. EDMS 23:21 Abo/rh Typing Sent. sharif 23:21 Basic Metabolic Panel Sent. sharif 23:21 CBC with Diff Sent. sharif 23:21 Quantitative Hcg Sent. sharif 23:22 Patient has correct armband on for positive identification. Bed in low position. Call sharif light in reach. Side rails up X 1. Adult w/ patient. 23:23 No provider procedures requiring assistance completed. sharif 23:24 Arm band placed on right wrist. sharif 07/23 00:00 intact, bleeding controlled, No redness/swelling at site. Pressure dressing applied. sharif Administered Medications: No medications were administered Outcome: 07/22 23:23 Condition: stable sharif 23:50 Discharge ordered by MD. chiu 07/23 00:00 Discharged to home ambulatory, with family. sharif Discharge instructions given to patient, Instructed on discharge instructions, follow up and referral plans. Demonstrated understanding of instructions, follow-up care. 00:01 Patient left the ED. sharif Signatures: Dispatcher [employer] EDMS Jaren Cruz PA PA jmm O'Farrell, Brenda, RN RN Delfino Sharif RN RN keMarylu Trotter
--- NOTE | 2021-07-22 23:51 | EDPHYS ---
Physician Documentation [facility] Name: Chely Dhillon Age: 20 yrs Sex: Female : 2000 Arrival Date: 07/22/2021 Time: 22:03 Bed 18 Private MD: ED Physician Dg Larson HPI: 07/22 23:28 The patient presents to the emergency department with Pelvic pain. The estimated [facility] gestational age is 10 weeks. course: care:. This is a 20-year-old G1, P0 with a history of anemia fibromyalgia the presents emerged part with complaints of pelvic pain worsening over the past 2 days. Patient denies vaginal bleeding or dysuria. Denies vomiting. . DIRECTOR WORK: 23:23 1, Full Term 0, Premature 0, 0, Living 0 sharif 23:28 1, Full Term 0, Premature 0, 0, Living 0 jm Historical: - Allergies: 22:26 frausto flavor; ke1 22:26 Latex, Natural Rubber; ke1 - Home Meds: 23:24 Vitamin Oral [Active]; sharif - PMHx: 22:26 Anemia; Fibromyalgia; ke1 - PSHx: 22:26 Appendectomy; ke1 - Immunization history:: Flu vaccine is up to date. - Social history:: Smoking status: Patient denies any tobacco usage or history of. ROS: 23:28 Constitutional: Negative for fever, chills, and weight loss, Cardiovascular: Negative jmm for chest pain, palpitations, and edema, Respiratory: Negative for shortness of breath, cough, wheezing, and pleuritic chest pain. 23:28 : Positive for pelvic pain. 23:28 All other systems are negative. Exam: 23:28 Constitutional: This is a well developed, well nourished patient who is awake, alert, jmm and in no acute distress. Head/Face: atraumatic. Eyes: EOMI, no conjunctival erythema appreciated ENT: Moist Mucus Membranes Neck: Trachea midline, Supple Chest/axilla: Normal chest wall appearance and motion. Cardiovascular: Regular rate and rhythm. No edema appreciated Respiratory: Normal respirations, no respiratory distress appreciated Abdomen/GI: Non distended, soft Back: Normal ROM Skin: General appearance color normal MS/ Extremity: Moves all extremities, no obvious deformities appreciated, no edema noted to the lower extremities Neuro: Awake and alert Psych: Behavior is normal, Mood is normal, Patient is cooperative and pleasant Vital Signs: 22:22 BP 113 / 70; Pulse 81; Resp 18; Temp 98(O); Pulse Ox 100% ; Weight 65.77 kg; Height 5 ke1 ft. 1 in. (154.94 cm); Pain 5/10; 23:59 BP 112 / 68; Pulse 78; Resp 18; Pulse Ox 100% on R/A; Pain 00/10; sharif 22:22 Body Mass Index 27.40 (65.77 kg, 154.94 cm) ke1 MDM: 22:36 Patient medically screened. [facility] 23:30 Data reviewed: vital signs, nurses notes. Counseling: I had a detailed discussion with [facility] the patient and/or guardian regarding: the historical points, exam findings, and any diagnostic results supporting the discharge/admit diagnosis. 23:50 Counseling: I had a detailed discussion with the patient and/or guardian regarding: [facility] radiology results, the need for outpatient follow up, to return to the emergency department if symptoms worsen or persist or if there are any questions or concerns that arise at home. 07/22 22:41 Order name: Abo/rh Typing [facility] 07/22 22:41 Order name: Basic Metabolic Panel [facility] 07/22 22:41 Order name: US 1st Trimest Single 1st Fetus [facility] 07/22 22:41 Order name: CBC with Diff; Complete Time: 23:32 [facility] 07/22 22:41 Order name: Quantitative Hcg [facility] 07/22 23:00 Order name: Urine Dipstick-Ancillary; Complete Time: 23:28 [facility] 07/22 22:20 Order name: Urine Test (obtain specimen) [facility] 07/22 22:41 Order name: IV Saline Lock; Complete Time: 23:20 [facility] 07/22 22:41 Order name: Labs collected and sent; Complete Time: 23:21 [facility] 07/22 22:41 Order name: NPO; Complete Time: 23:21 [facility] 07/22 22:41 Order name: Urine Dipstick-Ancillary (obtain specimen); Complete Time: 23:07 [facility] Administered Medications: No medications were administered Disposition: 07/23 04:56 Co-signature as Attending Physician, Dg Larson MD I agree with the assessment and kdr plan of care. Disposition Summary: 07/22/21 23:50 Discharge Ordered Location: Home jm Condition: Stable jmm Diagnosis - Pelvic and perineal pain jmm Followup: jmm - With: Private Physician - When: 1 - 2 days - Reason: Recheck today's complaints, Continuance of care, Re-evaluation by your physician Discharge Instructions: - Discharge Summary Sheet jmm - Subchorionic Hematoma jmm - First Trimester of jmm Forms: - Medication Reconciliation Form jmm - Thank You Letter jmm - Antibiotic Education jmm - Prescription Opioid Use jm Signatures: Dispatcher [employer] EDMS Dg Larson MD MD kdr Mickail, Joel, PA PA jmm O'Farrell, Brenda, RN RN Delfino Sharif RN RN ke1
[2021-07-22 23:59] LABS: HCG, Quantitative 74918 mIU/mL (1-3)
[2021-07-23 00:04] VITALS: TEMP 98; O2SAT 100
[2021-07-23 00:06] VITALS: BP 112/68
--- NOTE | 2021-07-24 17:05 | RAD REPORT ---
EXAM DESCRIPTION: 1St Trimest Single 1St Fetus CLINICAL HISTORY: 20 years Female, pelvic pain COMPARISON: None. TECHNIQUE: Sonographic imaging of the pelvis is performed using a transabdominal transducer. FINDINGS: Uterus measures 9 cm x 7.4 cm x 8.6 cm. Single intrauterine gestational sac is demonstrate d. pole is identified with crown-rump length measuring 3.4 cm corresponding to an estimated ges tational age of 10 weeks and 0 days. heart rate is 168 bpm. Nonspecific 7 mm hypoechoic structu re posterior to the placenta demonstrated. Left ovary measures 2.6 cm x 2.8 cm x 2.6 cm. Right ovary measures 2.2 cm x 1.9 cm x 1.9 cm. Both ova lloyd demonstrate Doppler flow. No adnexal mass. No significant free fluid. IMPRESSION: Single, live intrauterine with estimated age by ultrasound of 10 weeks and 0 d ays. Electronically signed by: Remi Mathis MD 07/23/2021 12:03 AM CDT Due to temporary technical issues with the PACS/Fluency reporting system, reports are being signed by the in house radiologists without review as a courtesy to insure prompt reporting. The interpreting radiologist is fully responsible for the content of the report.
== END 2021-07-23 00:01 | disposition home or self-care (01) ==
LOC: ER 22:00
DX: O26.891 Other specified pregnancy related conditions, first trimester (principal); Z3A.10 10 weeks gestation of pregnancy
CPT/HCPCS: 36415; 76801; 80048; 81003; 84702; 85025; 86900; 86901; 99283

== ENCOUNTER 2022-01-16 03:49 | Emergency (ER) | payer OTHER ==
--- OUTSIDE RECORDS SUMMARY | 2022-01-16 03:54 | XMS REPORT | Continuity of Care Document ---
:2000 Author Organization [facility] t Address [address] [place] [address] Care Team Providers Name Role Phone Astrid Shook Primary Care Physician Veronica Gomes Attending Clinician Unavailable DENNISE MACIEL Attending Clinician Unavailable Dennise Maciel MD Attending Clinician 2, Adc Lab Attending Clinician Unavailable Pob, Adc Lab Main Attending Clinician Unavailable Caridad Valenzuela Attending Clinician Unavailable Earl Avalos MD Attending Clinician EARL AVALOS Attending Clinician Unavailable Diamond Martinez PA-C Attending Clinician DIAMOND MARTINEZ Attending Clinician Unavailable Doctor Unassigned, [place] Attending Clinician Unavailable RINKU SANTIZO Attending Clinician Unavailable TIA RAYA Attending Clinician Unavailable UNKNOWN, ATTENDING Attending Clinician Unavailable DENNISE MACIEL Admitting Clinician Unavailable Dennise Maciel MD Admitting Clinician Payers Payer Name Policy Type Policy Number Effective Date Expiration Date Formerly [facility] [id number] 2013 [facility] MEDICAID 00:00:00 Problems Condition Condition Condition Status Onset Resolution [...] cramping 3-10 ity of in in 00:00: [place] antepartum antepartum 00 Me dical period period Branch Allergies, Adverse Reactions, Alerts Allergy Allergy Status Severity Reaction(s) Onset Inactive Treating Comm ents Source Name Type Date Date Clinician LATEX DRUG Active High Hives 2017-04 Univers INGREDI 2-07 ity of 00:00: [place] [id number] Medical [place] Latex Propensi Active Rash 2017-04 Univers ty to 2-07 ity of adverse 00:00: [place] reaction Medical s [place] Social History Social Habit Start Date Stop Date Quantity Comments Source ASSERTION [facility] Exposure to 2021-09-11 2021-09-21 Not sure [facility] SARS-CoV-2 00:00:00 16:06:00 [facility] (event) Branch Alcohol intake 2021-09-21 2021-09-21 Current [facility] 00:00:00 00:00:00 non-drinker of [facility] alcohol [place] (finding) Tobacco use and 2018-03-08 2018-03-08 Never used Universit y of exposure 00:00:00 00:00:00 [facility] Sex Assigned At [birth year] Universit y of 00:00:00 00:00:00 [facility] Smoking Status Start Date Stop Date Source Never smoker [facility] Medications Ordered Filled Start Stop Current Ordering Indication Dosage Frequency Signature Comments Components Source Medication Medication Date Date Medication? Clinician (SIG) Name Name acetaminoph 2021- No 650mg 650 mg, U nivers en 09-21 Oral, ONCE ity of (TYLENOL) 22:45: 22:50 NOW, 1 [place] tablet 650 00 :00 dose, On Medic al mg Wed Branch 09/21/21 at 1800, Routine metroNIDAZO 2021- No [id number] 500mg Take 1 Univers LE (FLAGYL) 06-12 tablet by it y of 500 mg 00:00: 04:59 mouth 2 [place] tablet 00 :00 (two) Medical times Branch daily for 7 days. metroNIDAZO 2021- No [id number] 500mg Take 1 Univers LE (FLAGYL) 3-13 -21 tablet by it y of 500 mg 00:00: 04:59 mouth 2 [place] tablet 00 :00 (two) Medical times Branch daily for 7 days. PNV 67-iron Yes [id number] 1{capsu Take 1 Univers ps-folate 3-10 le} capsule by ity of no.1-dha 00:00: mouth [place] (VITAFOL 00 daily. Medical ULTRA) 29 Branch mg iron- 1 mg-200 mg Cap PNV 67-iron Yes [id number] 1{capsu Take 1 Univers ps-folate 3-10 le} capsule by ity of no.1-dha 00:00: mouth [place] (VITAFOL 00 daily. Medical ULTRA) 29 Branch mg iron- 1 mg-200 mg Cap PNV 67-iron Yes [id number] 1{capsu Take 1 Univers ps-folate 3-10 le} capsule by ity of no.1-dha 00:00: mouth [place] (VITAFOL 00 daily. Medical ULTRA) 29 Branch mg iron- 1 mg-200 mg Cap PNV 67-iron Yes [id number] 1{capsu Take 1 Univers ps-folate 3-10 le} capsule by ity of no.1-dha 00:00: mouth [place] (VITAFOL 00 daily. Medical ULTRA) 29 Branch mg iron- 1 mg-200 mg Cap PNV 67-iron Yes [id number] 1{capsu Take 1 Univers ps-folate 3-10 le} capsule by ity of no.1-dha 00:00: mouth [place] (VITAFOL 00 daily. Medical ULTRA) 29 Branch mg iron- 1 mg-200 mg Cap norelgestro 2021- No 1{patch Apply 1 Univers min-ethinyl 18 10 } Patch to ity of estradiol 00:00: 00:00 skin [place] 150-35 00 :00 weekly. Medical mcg/24 hr Branch patch ondansetron 2019-04- No [id number] 8mg Take 1 Univers (ZOFRAN 1-23 03-10 tablet by ity of ODT) 8 mg 00:00: 00:00 mouth [place] disintegrat 00 :00 every 8 Medic al ing tablet (eight) Branch hours as needed for Nausea and Vomiting (N/V). fluticasone 2018-04 Yes [id number] 2{spray Use 2 Univers propionate 0-08 } Sprays in ity of 50 00:00: each [place] mcg/actuati 00 nostril Medic al on nasal daily. Branch spray fluticasone 2018-04 Yes [id number] 2{spray Use 2 Univers propionate 0-08 } Sprays in ity of 50 00:00: each [place] mcg/actuati 00 nostril Medic al on nasal daily. Branch spray fluticasone 2018-04 Yes [id number] 2{spray Use 2 Univers propionate 0-08 } Sprays in ity of 50 00:00: each [place] mcg/actuati 00 nostril Medic al on nasal daily. Branch spray fluticasone 2018-04 Yes [id number] 2{spray Use 2 Univers propionate 0-08 } Sprays in ity of 50 00:00: each [place] mcg/actuati 00 nostril Medic al on nasal daily. Branch spray fluticasone 2018-04- No [id number] 2{spray Use 2 Univers propionate 0-08 06-22 } Sprays in ity of 50 00:00: 00:00 each [place] mcg/actuati 00 :00 nostril Medic al on nasal daily. Branch spray hydrOXYzine 2021- No [id number] 25mg Take 1 Univers 25 mg 7-30 03-10 tablet by ity of tablet 00:00: 00:00 mouth [place] 00 :00 every 8 Medical (eight) Branch hours as needed for Itching. gabapentin 2021- No 200mg Take 200 U nivers 100 mg 9-20 03-10 mg by ity of capsule 00:00: 00:00 mouth. [place] 00 :00 Medical Branch cyclobenzap 2021- No 5mg Take 5 mg Univers rine 5 mg 9-20 03-10 by mouth. ity of tablet 00:00: 00:00 [place] 00 :00 Medical Branch Immunizations Ordered Filled Immunization Date Status Comments [facility] e Immunization Name Name Influenza Virus 2021-06-09 Completed Universit y of Vaccine Quad IM, 00:00:00 [facility] dical Preserv and ABX Branch Free 6 MO-64 YRS Influenza Virus 2021-06-09 Completed Universit y of Vaccine Quad IM, 00:00:00 [facility] dical Preserv and ABX Branch Free 6 MO-64 YRS Influenza Virus 2021-06-09 Completed Universit y of Vaccine Quad IM, 00:00:00 [facility] dical Preserv and ABX Branch Free 6 MO-64 YRS Influenza Virus 2021-06-09 Completed Universit y of Vaccine Quad IM, 00:00:00 [facility] dical Preserv and ABX Branch Free 6 MO-64 YRS Influenza Virus 2021-06-09 Completed Universit y of Vaccine Quad IM, 00:00:00 [facility] dical Preserv and ABX Branch Free 6 MO-64 YRS Influenza Virus 2013-02-10 Completed Universit y of Vaccine (3+ yrs) 00:00:00 [facility] Influenza Virus 2013-02-10 Completed Universit y of Vaccine (3+ yrs) 00:00:00 [facility] Influenza Virus 2013-02-10 Completed Universit y of Vaccine (3+ yrs) 00:00:00 [facility] Influenza Virus 2013-02-10 Completed Universit y of Vaccine (3+ yrs) 00:00:00 [facility] Influenza Virus 2013-02-10 Completed Universit y of Vaccine (3+ yrs) 00:00:00 [facility] Vital Signs Vital Name Observation Time Observation Value Comments Source Systolic blood 2021-09-22 00:15:00 105 mm[Hg] Univer sity of pressure [facility] Diastolic blood 2021-09-22 00:15:00 62 mm[Hg] Unive rsity of pressure [facility] Body temperature 2021-09-22 00:15:00 36.78 Adelia [facility] Respiratory rate 2021-09-22 00:15:00 16 /min [facility] Heart rate 2021-09-21 22:00:00 93 /min General acute hospital Oxygen saturation in 2021-09-21 22:00:00 100 /min [facility] Arterial blood by [facility] Pulse oximetry Branch Body height 2021-09-21 21:07:00 154.9 cm General acute hospital Body weight 2021-09-21 21:07:00 67.767 kg General acute hospital BMI 2021-09-21 21:07:00 28.23 kg/m2 General acute hospital Systolic blood 2021-06-09 15:41:00 129 mm[Hg] Univer sity of [facility] Diastolic blood 2021-06-09 15:41:00 84 mm[Hg] [facility] 2021-06-09 15:41:00 78 /min [facility] Body temperature 2021-06-09 15:41:00 36.83 Adelia [facility] Respiratory rate 2021-06-09 15:41:00 18 /min [facility] Body height 2021-06-09 15:41:00 154.9 cm General acute hospital Body weight 2021-06-09 15:41:00 66.225 kg General acute hospital BMI 2021-06-09 15:41:00 27.59 kg/m2 General acute hospital Procedures Procedure Date / Time Performed Performing Clinician [facility] e CONSENT/REFUSAL FOR 2021-09-21 20:32:50 Doctor Unassigned, No Un [facility] DIAGNOSIS AND Name [facility] TREATMENT FLU VACC ([id number]), 2021-06-09 16:00:[address] [facility] 2-64 YRS, .5ML, IM, Medical Bran ch QUAD (FLUCELVAX) Encounters Start End Encounter Admission Attending Care Care Encounter Source Date/Time Date/Time Type Type Clinicians Facility Department ID 2021-12-13 Outpatient Eliseo, STDENIALC [facility] [id number] Common 14:52:02 Veronica [facility] 2021-06-13 Outpatient Eliseo, STLMLC [facility] [id number] Common 14:26:01 Veronica [facility] 2021-05-10 Outpatient Eliseo, STDENIALC [facility] [id number] Common 08:15:04 Veronica [facility] 2021-04-27 Outpatient Eliseo, STLMLC [facility] [id number] Common 14:26:00 Veronica [id number] [facility] 2021-09-21 2021-09-21 Outpatient X DENNISE MACIEL [facility] MATTHEW [id number] Univers 16:11:00 19:45:00 ity [facility] 2021-09-21 2021-09-21 Emergency Dennise Maciel [facility] [id number] Univers 16:11:00 19:45:00 [place] [id number] i ty of [facility] [id number] [id number] [place] [id number] [place] 2021-06-23 2021-06-23 Outpatient R DENNISE MACIEL [facility] [id number] Univers 09:45:00 09:45:00 ity [facility] 2021-06-15 2021-06-15 ambulatory [facility] [id number] Common 00:00:00 00:00:00 [facility] 2021-06-13 2021-06-13 Steam Box Operator 2, Adc Lab [facility] [id number] Univers 09:15:00 09:30:00 Visit Dennise Maciel Luigi [place] [id number] ity of [id number] [id number] Tn dical NAL [address] [facility] 2021-06-13 2021-06-13 Outpatient R [facility] [id number] Univers 09:15:00 09:15:00 ity [facility] 2021-06-13 2021-06-13 Outpatient R DENNISE MACIEL [facility] [id number] Univers 09:15:00 09:15:00 ity [facility] 2021-06-12 2021-06-12 Case [facility] [id number] Univers 00:00:00 00:00:00 Management Cam [place] [id number] ity of [id number] [id number] Tn dical NAL [address] [facility] 2021-06-11 2021-06-11 Steam Box Operator Pob, Adc Lab Main [place] [id number] Univers 10:00:00 10:15:00 Visit Dennise Maciel [id number] ity [facility] [id number] [id number] Tn dical NAL [address] [facility] 2021-06-11 2021-06-11 Outpatient R [facility] [id number] Univers 10:00:00 10:00:00 ity of [facility] 2021-06-11 2021-06-11 Outpatient R RAHEEM [facility] [id number] Univers 10:00:00 10:00:00 ity [facility] 2021-06-09 2021-06-09 Steam Box Operator 2, Adc Lab [facility] [id number] Univers 10:30:00 11:06:35 Visit Dennise Maciel [id number] ity [facility] [id number] [id number] Tn dical NAL [address] [facility] 2021-06-09 2021-06-09 Outpatient R RAHEEM [facility] [id number] Univers 10:30:00 10:30:00 ity of [facility] 2021-06-09 2021-06-09 Outpatient R DENNISE MACIEL [facility] [id number] Univers 09:30:00 10:15:20 ity [facility] 2021-06-09 2021-06-09 Office [facility] [id number] Univers 09:30:00 10:15:20 Visit Luigi NUGENT [id number] i ty of [facility] [id number] [id number] Tn dical NAL [address] [facility] 2021-06-09 2021-06-09 Outpatient R DENNISE MACIEL [facility] [id number] Univers 09:30:00 10:15:20 ity [facility] 2021-06-09 2021-06-09 Letter [facility] [id number] Univers 00:00:00 00:00:00 (Out) Luigi NUGENT [id number] i ty of [place] [id number] [facility] [id number] Tn dical NAL 134 Branch [facility] 2021-05-09 2021-05-09 ambulatory STLMLC STLMLC [id number] Common 00:00:00 00:00:00 [facility] 2021-05-03 2021-05-03 ambulatory STLMLC STLMLC [id number] Common 00:00:00 00:00:00 [facility] 2021-03-17 2021-03-17 ambulatory STLMLC STLMLC [id number] Common 00:00:00 00:00:00 [facility] 2021-01-03 2021-01-03 Office Caridad Valenzuela [facility] [id number]. [id number] Univers 12:57:03 13:57:03 Visit Earl Avalos [facility] [id number] ity of Cancer [id number] [facility] [id number] [facility] ical [facility] 161 Branch 2021-01-03 2021-01-03 Outpatient R EARL AVALOS [facility] [id number] Univers 13:00:00 13:00:00 ity of [facility] 2020-12-21 2020-12-21 [facility] [id number] Univers 13:33:37 23:59:00 Encounter Diamond Nugent [id number] ity [facility] [id number] [facility] s [place] [id number] [facility] 806 Branch 2020-12-21 2020-12-21 Outpatient R MICHELLE [facility] [id number] Univers 00:00:00 00:00:00 DIAMOND ity of [facility] 2020-12-21 2020-12-21 Orders Doctor MEZA [id number] Univers 00:00:00 00:00:00 Only Unassigned, [place] [id number] ity of [place] [facility] [id number] Mark as [id number] [address] 2020-12-01 2020-12-01 [facility] [id number] Univers 14:32:33 15:20:05 Visit Diamond Nugent [id number] i ty of [id number] [phone] Tn dical nal 134 [facility] 2020-12-01 2020-12-01 Outpatient R MICHELLE [facility] [id number] Univers 14:30:00 14:30:00 DIAMOND [facility] 2020-11-17 2020-11-17 Outpatient R [facility] [id number] Univers 10:30:00 10:30:00 [facility] 2020-10-20 2020-10-20 [facility] [id number] Univers 09:30:00 09:30:00 DIAMOND [facility] 2020-08-03 2020-08-03 Outpatient R DARLYN [facility] [id number] Univers 13:00:00 13:00:00 RINKU [facility] 2020-07-03 2020-07-03 Outpatient R ELVER [facility] [id number] Univers 13:00:00 13:00:00 TIA [facility] 2020-07-01 2020-07-01 Outpatient R DARLYN [facility] [id number] Univers 13:00:00 13:00:00 [facility] 2020-02-23 2020-02-23 Outpatient R [facility] [id number] Univers 17:20:00 17:20:00 [facility] 2020-02-20 2020-02-20 [facility] [id number] Univers 10:30:00 10:30:00 [facility] 2020-02-12 2020-02-12 [facility] [id number] Univers 13:00:00 13:00:00 [facility] 2019-10-24 2019-10-24 Outpatient R [facility] [id number] Univers 16:20:00 16:20:00 [facility] 2019-10-20 2019-10-20 Steam Box Operator 2, Adc Lab [facility] [id number] 09:34:48 09:49:48 Visit James [id number] Ailyn [id number] Professio [id number] [facility] 353 [facility] 2019-10-20 2019-10-20 Office Michelle [facility] [id number] 08:02:01 08:58:39 Visit Diamond Nugent [id number] Aily[place] [id number] Professio [phone] [facility] 134 [facility] 2019-10-20 2019-10-20 [facility] [id number] Univers 08:00:00 08:00:00 [facility] 2019-10-20 2019-10-20 Orders Doctor DERRICK [id number] 00:00:00 00:00:00 Only Unassigned, [place] [id number] [facility] [id number] [id number] 2019-07-17 2019-07-17 Outpatient R MICHELLE [facility] [id number] Univers 09:45:00 09:45:00 DIAMOND [facility] 2019-06-04 2019-06-04 Outpatient R JALEN, [facility] [id number] Univers 19:30:00 19:30:00 ATTENDING [facility] Results This patient has no known results.
--- NOTE | 2022-01-16 04:17 | ER ---
Nurse's Notes [facility] Name: Chely Dhillon Age: 21 yrs Sex: Female : 2000 Arrival Date: 01/16/2022 Time: 03:52 Bed 7 Private MD: Diagnosis: Cough;35 weeks gestation of Presentation: 01/16 04:03 Chief complaint: Patient states: she is 35 weeks and started coughing bb yesterday, feels like she can't breath and symptoms are getting worse she is taking claritan, nasal spray and robitussin with no relief. Coronavirus screen: cough unrelated to allergies, difficulty breathing. Ebola Screen: No symptoms or risks identified at this time. Initial Sepsis Screen: Does the patient meet any 2 criteria? No. Patient's initial sepsis screen is negative. Does the patient have a suspected source of infection? No. Patient's initial sepsis screen is negative. Risk Assessment: Do you want to hurt yourself or someone else? Patient reports no desire to harm self or others. Onset of symptoms was January 15, 2022. 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 - Social history:: Smoking status: Patient denies any tobacco usage or history of. Screenin:15 Abuse screen: Denies threats or abuse. Nutritional screening: No deficits noted. jb4 Tuberculosis screening: No symptoms or risk factors identified. Fall Risk None identified. Assessment: 04:15 General: Appears in no apparent distress. comfortable, Behavior is calm, cooperative, jb4 appropriate for age. Pain: Denies pain. Neuro: Level of Consciousness is awake, alert, obeys commands, Oriented to person, place, time, situation. Cardiovascular: Patient's skin is warm and dry. Respiratory: Reports cough that is non-productive, persistent Airway is patent Respiratory effort is even, unlabored, Respiratory pattern is regular, symmetrical, Breath sounds are clear bilaterally. GI: No signs and/or symptoms were reported involving the gastrointestinal system. : No signs and/or symptoms were reported regarding the genitourinary system. EENT: No signs and/or symptoms were reported regarding the EENT system. Derm: Skin is intact, Skin is pink, warm \T\ dry. Musculoskeletal: Circulation, motion, and sensation intact. Range of motion: intact in all extremities. Vital Signs: 04:03 BP 126 / 84; Pulse 110; Resp 20 S; Temp 98.2(O); Pulse Ox 95% on R/A; Weight 77.11 kg bb (R); ED Course: 03:52 Patient arrived in ED. ag3 03:59 Wenceslao Minaya DO is Attending Physician. ms3 04:02 Britni Monreal is Primary Nurse. tw5 04:15 Patient has correct armband on for positive identification. Bed in low position. Call jb4 light in reach. Side rails up X 1. 04:15 No provider procedures requiring assistance completed. Patient did not have IV access jb4 during this emergency room visit. 04:18 Triage completed. bb 04:18 Arm band placed on Patient placed in an exam room, on a stretcher, on pulse oximetry. bb Administered Medications: No medications were administered Medication: 04:15 VIS not applicable for this client. jb4 Outcome: 04:17 Discharge ordered by . ms3 04:29 Discharged to home ambulatory. jb4 04:29 Condition: stable 04:29 Discharge instructions given to patient, Instructed on discharge instructions, follow up and referral plans. Demonstrated understanding of instructions, follow-up care. 04:29 Patient left the ED. jb4 Signatures: Afia Bronson RN RN bb Apolinar Luther RN RN jb4 Lima Purcell ag3 Wenceslao Minaya DO DO ms3 Britni Monreal tw5
--- NOTE | 2022-01-16 04:29 | EDPHYS ---
Physician Documentation [facility] Name: Chely Dhillon Age: 21 yrs Sex: Female : 2000 Arrival Date: 01/16/2022 Time: 03:52 Bed 7 Private MD: ED Physician Wenceslao Minaya HPI: 01/16 04:20 This 21 yrs old Female presents to ER via Ambulatory with complaints of Cough. ms3 04:20 21-year-old female with past medical history of anemia, fibromyalgia at 35 weeks ms3 gestation presents for cough that began yesterday. Patient denies fevers, chills, nausea, vomiting. Patient states she has felt movement. Patient denies alleviating or inciting factors. Patient denies pain at this time. 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 - Social history:: Smoking status: Patient denies any tobacco usage or history of. ROS: 04:20 Constitutional: Negative for fever, and chills. Neck: Negative for injury, pain, and ms3 swelling, Cardiovascular: Negative for chest pain, and palpitations. Abdomen/GI: Negative for abdominal pain, nausea, vomiting, diarrhea, and constipation. 04:20 Skin: Negative for injury, rash, and discoloration. 04:20 Respiratory: Positive for cough. 04:20 All other systems are negative. Exam: 04:20 Constitutional: This is a well developed, well nourished patient who is awake, alert, ms3 and in no acute distress. Head/Face: Normocephalic, atraumatic. Neck: Trachea midline, no cervical lymphadenopathy. Supple, full range of motion without nuchal rigidity, or vertebral point tenderness. No Meningismus. Chest/axilla: Normal chest wall appearance and motion. Nontender with no deformity. Cardiovascular: Regular rate and rhythm with a normal S1 and S2. No gallops, murmurs, or rubs. Normal PMI, no JVD. No pulse deficits. 04:20 Skin: Warm, dry with normal turgor. Normal color with no rashes, no lesions, and no evidence of cellulitis. MS/ Extremity: Pulses equal, no cyanosis. Neurovascular intact. Full, normal range of motion. 04:20 Respiratory: the patient does not display signs of respiratory distress, Respirations: normal, Breath sounds: no acute changes, throughout. Vital Signs: 04:03 BP 126 / 84; Pulse 110; Resp 20 S; Temp 98.2(O); Pulse Ox 95% on R/A; Weight 77.11 kg bb (R); MDM: 04:15 Patient medically screened. ms3 04:20 Differential Diagnosis: Bronchitis Upper Respiratory Infection Allergic Rhinitis Viral ms3 Syndrome. Data reviewed: vital signs, nurses notes, and as a result, I will discharge patient. Counseling: I had a detailed discussion with the patient and/or guardian regarding: the historical points, exam findings, and any diagnostic results supporting the discharge/admit diagnosis, the need for outpatient follow up, to return to the emergency department if symptoms worsen or persist or if there are any questions or concerns that arise at home. ED course: Discussed physical exam findings with patient. Patient offered chest x-ray and declined. Symptomatic care discussed with patient. Patient follow-up with her OB in 2 to 3 days. Patient understands and agrees with plan. All questions were answered. Return precautions discussed include shortness of breath, chest pain, worsening symptoms, or any other concerns.. Administered Medications: No medications were administered Disposition: 08:28 Chart complete. ms3 Disposition Summary: 01/16/22 04:17 Discharge Ordered Location: Home ms3 Condition: Stable ms3 Diagnosis - Cough ms3 - 35 weeks gestation of ms3 Followup: ms3 - With: Private Physician - When: 2 - 3 days - Reason: Recheck today's complaints Discharge Instructions: - Discharge Summary Sheet ms3 - Cough, Adult, [id number] ms3 - Cough, Adult ms3 Forms: - Medication Reconciliation Form ms3 - Thank You Letter ms3 - Antibiotic Education ms3 - Prescription Opioid Use ms3 Signatures: Afia Bronosn RN RN Wenceslao Stevens DO DO ms3
[2022-01-16 04:33] VITALS: BP 126/84; TEMP 98.2; O2SAT 95
== END 2022-01-16 04:29 | disposition home or self-care (01) ==
LOC: ER 03:49
DX: O26.893 Other specified pregnancy related conditions, third trimester (principal); R05.9 Cough, unspecified; Z91.040 Latex allergy status
CPT/HCPCS: 99283

== ENCOUNTER 2022-06-12 02:03 | Observation (INO) | payer OTHER ==
--- OUTSIDE RECORDS SUMMARY | 2022-06-12 02:08 | XMS REPORT | Continuity of Care Document ---
:2000 Author Organization [facility] t Address [address] [place] [address] [place] [address] Care Team Providers Name Role Phone Astrid Shook Primary Care Physician Veronica Gomes Attending Clinician Unavailable Monae Girard Attending Clinician Unavailable DENNISE MACIEL Attending Clinician Unavailable Dennise Maciel MD Attending Clinician 2, [facility] Lab Attending Clinician Unavailable Pob, Adc Lab Main Attending Clinician Unavailable Caridad Valenzuela Attending Clinician Unavailable Earl Avalos MD Attending Clinician EARL AVALOS Attending Clinician Unavailable Diamond Martinez PA-C Attending Clinician DIAMOND MARTINEZ Attending Clinician Unavailable Doctor Unassigned, [place] Attending Clinician Unavailable RINKU SANTIZO Attending Clinician Unavailable TIA RAYA Attending Clinician Unavailable UNKNOWN, ATTENDING Attending Clinician Unavailable Monae Girard Admitting Clinician Unavailable DENNISE MACIEL Admitting Clinician Unavailable Dennise Maciel MD Admitting Clinician Payers Payer Name Policy Type Policy Number Effective Date Expiration Date Shanna quan [facility] [id number] 2013 [facility] MEDICAID 00:00:00 Problems Condition Condition Condition [...] antepartum 00 Me dical period period Branch [id number] Anxiety Problem Active [facility] [id number] Anemia, Problem Active Commo n unspecifie Spirit d [facility] [id number] Fibromyalg Problem Active Co mmon ia [facility] Allergies, Adverse Reactions, Alerts Allergy Allergy Status Severity Reaction(s) Onset Inactive Treating Comm ents Source Name Type Date Date Clinician latex DA Active U RASH-HIVES 2021-04 [facility] 1-18 [facility] [place] latex DA Active U RASH-HIVES 2021-04 [facility] 0-23 [facility] [place] LATEX DRUG Active High Hives 2017-04 Univers INGREDI 2-07 ity of 00:00: [place] 00 Medical [place] Latex Propensi Active Rash 2017-04 Univers ty to 2-07 ity of adverse 00:00: [place] reaction Medical s [place] Latex Latex Active rash Common [facility] 382 Drug Active rash Common allergy [facility] Social History Social Habit Start Date Stop Date Quantity Comments Source History of [facility] - Tobacco Use [facility] Sex Assigned At Common Sp kvaeh - [facility] ASSERTION [facility] Exposure to 2021-09-11 2021-09-21 Not sure [facility]-CoV-2 00:00:00 16:06:00 [facility] (event) [place] Alcohol intake 2021-09-21 2021-09-21 Current University of 00:00:00 00:00:00 non-drinker of [facility] alcohol Branch (finding) Tobacco use and 2018-03-08 2018-03-08 Never used Universit y of exposure 00:00:00 00:00:00 [place] [facility] Smoking Status Start Date Stop Date Source Never Smoker [facility] Medications Ordered Filled Start Stop Current Ordering Indication Dosage Frequency Signature Comments Components Source Medication Medication Date Date Medication? Clinician (SIG) Name Name acetaminoph 2021- No 650mg 650 mg, U nivers en 09-21 Oral, ONCE ity of (TYLENOL) 22:45: 22:50 NOW, 1 [place] tablet 650 00 :00 dose, On Medic al mg Wed Branch 09/21/21 at 1800, Routine metroNIDAZO 2021- No [id number] 500mg Take 1 Univers LE (FLAGYL) 3-13 -21 tablet by it y of 500 mg 00:00: 04:59 mouth 2 [place] tablet 00 :00 (two) Medical times Branch daily for 7 days. metroNIDAZO 2021- No [id number] 500mg Take 1 Univers LE (FLAGYL) 3-13 -21 tablet by it y of 500 mg 00:00: 04:59 mouth 2 [place] tablet 00 :00 (two) Medical times Branch daily for 7 days. PNV 67-iron Yes [id number] 1{capsu Take 1 Univers ps-folate 3-10 le} capsule by ity of no.1-dha 00:00: mouth [place] (VITAFOL 00 daily. Medical ULTRA) 29 Branch mg iron- 1 mg-200 mg Cap PNV 67-iron Yes [id number] 1{capsu Take 1 Univers ps-folate 3-10 le} capsule by ity of no.1-dha 00:00: mouth [place] (VITAFOL 00 daily. Medical ULTRA) 29 Branch mg iron- 1 mg-200 mg Cap PNV 67-iron Yes [id number] 1{capsu Take 1 Univers ps-folate 3-10 le} capsule by ity of no.1-dha 00:00: mouth [place] (VITAFOL 00 daily. Medical ULTRA) 29 Branch mg iron- 1 mg-200 mg Cap PNV 67-iron Yes [id number] 1{capsu Take 1 Univers ps-folate 3-10 le} capsule by ity of no.1-dha 00:00: mouth [place] (VITAFOL 00 daily. Medical ULTRA) 29 Branch mg iron- 1 mg-200 mg Cap PNV 67-iron Yes [id number] 1{capsu Take 1 Univers ps-folate 3-10 le} capsule by ity of no.1-dha 00:00: mouth [place] (VITAFOL 00 daily. Medical ULTRA) 29 Branch mg iron- 1 mg-200 mg Cap Tessalon Tessalon No 1{capsu TID Tessalon Perles 100 Perles 100 2-08 le_as_n Perles 100 MG MG 00:00: eeded} MG 00 Phenol 1.4 Phenol 1.4 2021- No Phenol 1.4 % % 2-08 02-13 % 00:00: 00:00 00 :00 norelgestro 2021- No 1{patch Apply 1 Univers min-ethinyl 8-18 03-10 } Patch to ity of estradiol 00:00: 00:00 skin [place] 150-35 00 :00 weekly. Medical mcg/24 hr Branch patch ondansetron 2019-04- No [id number] 8mg Take 1 Univers (ZOFRAN 1-23 03-10 tablet by ity of ODT) 8 mg 00:00: 00:00 mouth [place] disintegrat 00 :00 every 8 Medic al ing tablet (eight) Branch hours as needed for Nausea and Vomiting (N/V). fluticasone 2018-04 Yes [id number] 2{spray Use 2 Univers propionate 0-08 } Sprays in ity of 50 00:00: each [place] mcg/actuati 00 nostril Medic al on nasal daily. Branch spray fluticasone 2018-04 Yes [id number] 2{spray Use 2 Univers propionate 0-08 } Sprays in ity of 50 00:00: each [place] mcg/actuati 00 nostril Medic al on nasal daily. Branch spray fluticasone 2018-04 Yes [id number] 2{spray Use 2 Univers propionate 0-08 } Sprays in ity of 50 00:00: each [place] mcg/actuati 00 nostril Medic al on nasal daily. Branch spray fluticasone 2018-04 Yes [id number] 2{spray Use 2 Univers propionate 0-08 } Sprays in ity of 50 00:00: each [place] mcg/actuati 00 nostril Medic al on nasal daily. Branch spray fluticasone 2018-04- No [id number] 2{spray Use 2 Univers propionate 0-08 06-22 } Sprays in ity of 50 00:00: 00:00 each [place] mcg/actuati 00 :00 nostril Medic al on nasal daily. Branch spray hydrOXYzine 2021- No [id number] 25mg Take 1 Univers 25 mg 7-30 03-10 tablet by ity of tablet 00:00: 00:00 mouth [place] 00 :00 every 8 Medical (eight) Branch hours as needed for Itching. gabapentin 2021- No 200mg Take 200 U nivers 100 mg 9-20 03-10 mg by ity of capsule 00:00: 00:00 mouth. [place] 00 :00 Medical Branch cyclobenzap 2021- No 5mg Take 5 mg Univers rine 5 mg 9-20 03-10 by mouth. ity of tablet 00:00: 00:00 [place] 00 :00 [facility] No Known No Known No Common Medications Medications [facility] No Known No Known No Common Medications Medications [facility] Azithromyci Azithromyci No QD Azithromyc n 250 MG n 250 MG in 250 MG No 1{table QD 28-0.8 MG 28-0.8 MG t} 28-0.8 MG Immunizations Ordered Filled Immunization Date Status Comments [facility] e Immunization Name Name Influenza Virus 2021-06-09 Completed Universit y of Vaccine Quad IM, 00:00:00 [place] Me dical Preserv and ABX Branch Free 6 MO-64 YRS Influenza Virus 2021-06-09 Completed Universit y of Vaccine Quad IM, 00:00:00 [place] Me dical Preserv and ABX Branch Free 6 MO-64 YRS Influenza Virus 2021-06-09 Completed Universit y of Vaccine Quad IM, 00:00:00 [place] Me dical Preserv and ABX Branch Free 6 MO-64 YRS Influenza Virus 2021-06-09 Completed Universit y of Vaccine Quad IM, 00:00:00 [facility] dical Preserv and ABX Branch Free 6 MO-64 YRS Influenza Virus 2021-06-09 Completed Universit y of Vaccine Quad IM, 00:00:00 [facility] dical Preserv and ABX Branch Free 6 MO-64 YRS Influenza Virus 2013-02-10 Completed Universit y of Vaccine (3+ yrs) 00:00:00 [facility] Influenza Virus 2013-02-10 Completed Universit y of Vaccine (3+ yrs) 00:00:00 [facility] Influenza Virus 2013-02-10 Completed Universit y of Vaccine (3+ yrs) 00:00:00 [facility] 2013-02-10 Completed Universit y of Vaccine (3+ yrs) 00:00:00 [facility] Influenza Virus 2013-02-10 Completed Universit y of Vaccine (3+ yrs) 00:00:00 [facility] Vital Signs Vital Name Observation Time Observation Value Comments Source Systolic blood 2021-09-22 00:15:00 105 mm[Hg] Univer sity of pressure [facility] Diastolic blood 2021-09-22 00:15:00 62 mm[Hg] Unive rsity of pressure [facility] Body temperature 2021-09-22 00:15:[address] [facility] Respiratory rate 2021-09-22 00:15:00 16 /min [facility] Heart rate 2021-09-21 22:00:00 93 /min [facility] Oxygen saturation in 2021-09-21 22:00:00 100 /min [facility] Arterial blood by [facility] Pulse oximetry [place] Body height 2021-09-21 21:07:00 154.9 cm [facility] Body weight 2021-09-21 21:07:00 67.767 kg [facility] BMI 2021-09-21 21:07:00 28.23 kg/m2 [facility] height 2021-06-15 16:20:00 61 [in_i] [facility] weight 2021-06-15 16:20:00 145 [lb_av] [facility] temperature 2021-06-15 16:20:00 98.3 [degF] Common S pirit [facility] bmi 2021-06-15 16:20:00 27.39 kg/m2 Common S pirit - [facility] oximetry 2021-06-15 16:20:00 100 % Common S pirit [facility] respiratory rate 2021-06-15 16:20:00 16 /min Comm on Spirit - [facility] blood pressure 2021-06-15 16:20:00 116 mm[Hg] [facility] - systolic [facility] blood pressure 2021-06-15 16:20:00 62 mm[Hg] [facility] - diastolic [facility] Systolic blood 2021-06-09 15:41:00 129 mm[Hg] Univer sity [facility] Diastolic blood 2021-06-09 15:41:00 84 mm[Hg] [facility] 2021-06-09 15:41:00 78 /min [facility] Body temperature 2021-06-09 15:41:00 36.83 Adelia [facility] Respiratory rate 2021-06-09 15:41:00 18 /min [facility] Body height 2021-06-09 15:41:00 154.9 cm [facility] Body weight 2021-06-09 15:41:00 66.225 kg [facility] BMI 2021-06-09 15:41:00 27.59 kg/m2 [facility] height 2021-05-03 10:00:00 61 [in_i] [facility] weight 2021-05-03 10:00:00 142.8 [lb_av] [facility] temperature 2021-05-03 10:00:00 97.3 [degF] Common S pirit [facility] bmi 2021-05-03 10:00:00 26.98 kg/m2 [facility] oximetry 2021-05-03 10:00:00 98 % [facility] respiratory rate 2021-05-03 10:00:00 16 /min Comm on [facility] blood pressure 2021-05-03 10:00:00 122 mm[Hg] [facility] systolic [facility] blood pressure 2021-05-03 10:00:00 75 mm[Hg] [facility] diastolic [facility] height 2021-03-17 15:20:00 61 [in_i] [facility] weight 2021-03-17 15:20:00 143.8 [lb_av] [facility] temperature 2021-03-17 15:20:00 97.7 [degF] [facility] bmi 2021-03-17 15:20:00 27.17 kg/m2 [facility] oximetry 2021-03-17 15:20:00 100 % [facility] respiratory rate 2021-03-17 15:20:00 18 /min Comm on [facility] blood pressure 2021-03-17 15:20:00 101 mm[Hg] [facility] systolic [facility] blood pressure 2021-03-17 15:20:00 70 mm[Hg] [facility] Procedures Procedure Date / Time Performed Performing Clinician Vijay chuckie [id number] 2022-02-19 00:00:00 DEBPR [facility] [id number] 2022-02-19 00:00:00 DEBPR [facility] [id number] 2022-02-19 00:00:00 DEBPR [facility] CONSENT/REFUSAL FOR 2021-09-21 20:32:50 Doctor [facility], [facility] AND Name Medical Branch TREATMENT FLU VACC ([id number]), 2021-06-09 16:00:37 Dennise Maciel [facility] 2-64 YRS, .5ML, IM, Medical Bran ch QUAD (FLUCELVAX) Encounters Start End Encounter Admission Attending Care Care Encounter Source Date/Time Date/Time Type Type Clinicians Facility Department ID 2021-12-[address] [facility] [id number] Common 14:52:02 Veronica [facility] 2021-06-[address] [facility] [id number] Common 14:26:01 Veronica [facility] 2021-05-[address] [facility] [id number] Common 08:15:04 Veronica [facility] 2021-04-[address] [facility] [id number] Common 14:26:00 Veronica [facility] 2022-02-18 2022-02-20 Inpatient EM ROBERTO Girard OBPP [id number] [facility] 12:12:00 19:37:00 Monae 77 [facility] [place] 2022-02-17 2022-02-17 Emergency EM ROBERTO Girard PRE[facility] [id number] [facility] 06:39:00 10:56:00 Monae 09 [facility] [place] 2022-02-01 2022-02-01 Emergency EM ROBERTO Girard [facility] [id number] [facility] 19:01:00 21:05:00 Monae 71 [facility] [place] 2022-01-22 2022-01-23 Emergency EL Shaji [facility] [id number] [facility] 20:56:00 02:48:00 Monae 15 [facility] [place] 2021-09-21 2021-09-21 Outpatient X DENNISE MACIEL SDALMITA MATTHEW [id number] Univers 16:11:00 19:45:00 ity of [facility] 2021-09-21 2021-09-21 Emergency Dennise Maciel SDALMITA [id number] Univers 16:11:00 19:45:00 Cam [place] [id number] i ty [facility] [id number] [facility] [id number] [address] 2021-06-23 2021-06-23 Outpatient R DENNISE MACIEL [facility] [id number] Univers 09:45:00 09:45:00 ity of [facility] 2021-06-15 2021-06-15 OFFICE STLMLC STLMLC [id number] Co mmon 00:00:00 00:00:00 VISIT EST Spir it PT LEVEL 3 - [facility] 2021-06-13 2021-06-13 Software Packager 2, Adc Lab [facility] [id number] Univers 09:15:00 09:30:00 Visit Dennise MacielSIDDHARTH [id number] ity of [place] [id number] [place] PROF[place] [phone] Ri dical NAL [address] [place] [address] 2021-06-13 2021-06-13 Outpatient R [facility] [id number] Univers 09:15:00 09:15:00 ity of [facility] 2021-06-13 2021-06-13 Outpatient R DENNISE MACIEL [facility] [id number] Univers 09:15:00 09:15:00 ity of [facility] 2021-06-12 2021-06-12 Case Raheem [facility] [id number] Univers 00:00:00 00:00:00 Nilda LEDESMASIDDHARTH [id number] ity of [place] [id number] [place] [phone] Ri dical NAL 134 [facility] 2021-06-11 2021-06-11 Software Packager Leandrob, Adc Lab Main [facility] [id number] Univers 10:00:00 10:15:00 Visit Dennise Maciel [id number] ity of [place] [id number] [place] [id number] Ri dical NAL 353 [facility] 2021-06-11 2021-06-11 Outpatient R [facility] [id number] Univers 10:00:00 10:00:00 ity of [facility] 2021-06-11 2021-06-11 Outpatient R DENNISE MACIEL [facility] [id number] Univers 10:00:00 10:00:00 ity of [facility] 2021-06-09 2021-06-09 Software Packager 2, Adc Lab [facility] [id number] Univers 10:30:00 11:06:35 Visit Dennise Maciel Luigi NUGENT [id number] ity of [place] [id number] [place] [id number] Ri dical NAL 353 [facility] 2021-06-09 2021-06-09 Outpatient R RAHEEM DENNISE [facility] [id number] Univers 10:30:00 10:30:00 ity [facility] 2021-06-09 2021-06-09 Outpatient R RAHEEM DENNISE [facility] [id number] Univers 09:30:00 10:15:20 ity [facility] 2021-06-09 2021-06-09 Office Raheem [facility] [id number] Univers 09:30:00 10:15:20 Visit Luigi NUGENT [id number] i ty of [place] [id number] [place] [id number] Ri dical NAL 134 [facility] 2021-06-09 2021-06-09 Outpatient R MACIEL DENNISE [facility] [id number] Univers 09:30:00 10:15:20 ity of [facility] 2021-06-09 2021-06-09 Letter Raheem [facility] [id number] Univers 00:00:00 00:00:00 (Out) Luigi NUGENT [id number] i ty of [place] [id number] [place] [phone] Ri dical NAL 134 [facility] 2021-05-09 2021-05-09 (TEL) STLMLC STLMLC [id number] Co mmon 00:00:00 00:00:00 Spirit [facility] 2021-05-03 2021-05-03 OFFICE STLMLC STLMLC [id number] Co mmon 00:00:00 00:00:00 VISIT EST Spir it PT LEVEL 3 - [facility] 2021-03-17 2021-03-17 PREV VISIT STLMLC STLMLC [id number] Common 00:00:00 00:00:00 NEW AGE Spirit 18-39 - [facility] 2021-01-03 2021-01-03 Office Caridad Valenzuela [facility] [id number]. [id number] Univers 12:57:03 13:57:03 Visit Robbie Earl [facility] [id number] ity of Cancer [id number] [facility] - [phone] Med ical [facility] 161 Branch 2021-01-03 2021-01-03 Outpatient R EARL AVALOS [facility] [id number] Univers 13:00:00 13:00:00 ity of [facility] 2020-12-21 2020-12-21 Hospital [facility] [id number] Univers 13:33:37 23:59:00 Encounter Diamond Nugent [id number] ity [facility] [id number] [facility] [id number] [facility] 806 Branch 2020-12-21 2020-12-21 Outpatient [facility] [id number] Univers 00:00:00 00:00:00 DIAMOND [place] of [facility] 2020-12-21 2020-12-21 Orders Doctor DERRICK [id number] Univers 00:00:00 00:00:00 Only Unassigned, POLLO [id number] ity of [place] [facility] [id number] Mark [phone] [facility] 009 Branch 2020-12-01 2020-12-01 [facility] [id number] Univers 14:32:33 15:20:05 Visit Diamond Nugent [id number] i ty of [place] [id number] [facility] [id number] Ri dical nal 134 Branch Building 2020-12-01 2020-12-01 Outpatient [facility] [id number] Univers 14:30:00 14:30:00 DIAMOND [facility] 2020-11-17 2020-11-17 Outpatient R [facility] [id number] Univers 10:30:00 10:30:00 [facility] 2020-10-20 2020-10-20 Outpatient R MICHELLE [facility] [id number] Univers 09:30:00 09:30:00 DIAMOND [facility] 2020-08-03 2020-08-03 Outpatient R DARLYN, [facility] [id number] Univers 13:00:00 13:00:00 RINKU [facility] 2020-07-03 2020-07-03 Outpatient R [facility] [id number] Univers 13:00:00 13:00:00 TIA [facility] 2020-07-01 2020-07-01 Outpatient [facility] [id number] Univers 13:00:00 13:00:00 [facility] 2020-02-23 2020-02-23 Outpatient R [facility] [id number] Univers 17:20:00 17:20:00 [facility] 2020-02-20 2020-02-20 Outpatient [facility] [id number] Univers 10:30:00 10:30:00 [facility] 2020-02-12 2020-02-12 Outpatient R [facility] [id number] Univers 13:00:00 13:00:00 [facility] 2019-10-24 2019-10-24 Outpatient R [facility] [id number] Univers 16:20:00 16:20:00 [facility] 2019-10-20 2019-10-20 Software Packager 2, Adc Lab [facility] [id number] 09:34:48 09:49:48 Visit James [id number] [place] [id number] [place] [id number] [address] 2019-10-20 2019-10-20 Office [facility] [id number] 08:02:01 08:58:39 Visit Diamond Nugent [id number] [place] [id number] [place] [id number] [address] 2019-10-20 2019-10-20 Outpatient R KASHKUMARKATELIN, [facility] [id number] Univers 08:00:00 08:00:00 [facility] 2019-10-20 2019-10-20 Orders Doctor DERRICK [id number] 00:00:00 00:00:00 Only Unassigned, [place] 350.1.13.10 [place] [facility] [id number] [id number] 2019-07-17 2019-07-17 Outpatient [facility] [id number] [facility] 09:45:00 [facility]45[facility] 2019-06-[facility] 2019-06-04 Outpatient R JALEN, [facility] [id number] [facility] 19:30:00 19:30:00 ATTENDING [facility] Results Test Description Test Time Test Comments Results Result Comments Source AG HEPATITIS B SURFACE 2022-02-18 14:42:00 Test Item Value Reference Range Interpretation Comme nts AG HEPATITIS B SURFACE (test code = HBSAG) NONREACTIVE NONREACTIVE AB HEPATITIS C [id number] 14:42:00 Test Item Value Reference Range Interpretation Comments AB HEPATITIS C (test code = NONREACTIVE NONREACTIVE HCVAB) SIGNAL TO CUTOFF (test code = 0.11 <0.80 N CUTOFF) AB [id number] 14:42:00 Test Item Value Reference Range Interpretation Comments AB TREPONEMA (test code = TREPAB) NONREACTIVE NONREACTIVE AB HIV 1 14:42:00 Test Item Value Reference Range Interpretation Comments AB HIV 1 2 (test NONREACTIVE NONREACTIVE Done by [facility] code = [id number]) 4th Gen HIV Ag/Ab Combo Screen CBC W/AUTO [id number] 13:05:00 Test Item Value Reference Range Interpretation Comments WHITE BLOOD CELL (test code = WBC) 17.9 K/mm3 6.5-12.3 H RED BLOOD CELL (test code = RBC) 4.26 M/mm3 3.51-4.69 N HEMOGLOBIN (test code = HGB) 10.8 g/dL 10.1-13.8 N HEMATOCRIT (test code = HCT) 34.0 % 32.5-41.8 N MEAN CELL VOLUME (test code = MCV) 79.8 fL 84.6-96.6 L MEAN CELL HGB (test code = MCH) 25.4 pg 27.3-33.9 L MEAN CELL HGB CONCETRATION (test 31.8 gm/dL 32.0-34.2 L code = MCHC) RED CELL DISTRIBUTION WIDTH (test 16.9 % 12.2-16.3 H code = RDW) PLATELET COUNT (test code = PLT) 336 K/mm3 134-363 N MEAN PLATELET VOLUME (test code = 10.7 fL 9.2-12.7 N MPV) NEUTROPHIL % (test code = NT%) 69.3 % 57.9-77.3 N LYMPHOCYTE % (test code = LY%) 21.6 % 14.5-29.7 N MONOCYTE % (test code = MO%) 5.9 % 3.6-10.2 N EOSINOPHIL % (test code = EO%) 1.5 % 0.0-3.0 N BASOPHIL % (test code = BA%) 0.4 % 0.1-0.9 N NEUTROPHIL # (test code = NT#) 12.4 K/mm3 LYMPHOCYTE # (test code = LY#) 3.9 K/mm3 MONOCYTE # (test code = MO#) 1.1 K/mm3 EOSINOPHIL # (test code = EO#) 0.27 K/mm3 BASOPHIL # (test code = BA#) 0.1 K/mm3 RBC MORPHOLOGY REQUIRED (test code NORMAL NORMAL = RBCM) PLATELET MORPHOLOGY REQUIRED (test NORMAL NORMAL code = PLTMR) RUPTURE OF [id number] 20:04:00 Test Item Value Reference Range Interpretation Comments RUPTURE OF MEMBRANES (test code NON-RUPTURED = ROM) - US [id number] 00:00:00 [facility] DOB: 2000 Sex: F Patient Name: CHELY DHILLON Unit No: [id number] EXAMS: CPT CODE: [id number] US LTD [id number] PROCEDURE INFORMATION: Exam: US , Limited Exam date and time: 02/01/2022 8:36 PM Age: 21 years old Clinical indication: Lmp or gestational age (in weeks): 37w5d; Other: Lof; ; Additional info:Needing keenan TECHNIQUE: Imaging protocol: Real-time ultrasound of the maternal uterus with im age documentation. Exam focused on the clinical indication. ADDITIONAL STUDY INFORMATION: Amniotic fluid index: KEENAN is 14.8 cm. Estimated due date (Established): 02/17/2022 heart rate: 128 bpm Gestational age (Established): 37 w 5 d COMPARISON: US FET BIO PH AK W/O NST 01/22/2022 11:47 PM Gestational age (Established): 37 weeks 5 days Estimated due date (Established): 02/17/2022 Cephalic presentation. The cervix is closed with a measured length of 2.7 cm. Fundal grade 3 placenta without placenta previa. Normal amniotic fluid index of 14.8 cm. heart rate of 128 bpm. The right ovary measures 2.7 x 1.5 x 1.4 cm and maintains normal echotexture. The left ovary was not identified. No adnexal masses or pelvic fluid collections were noted. IMPRESSION: Single intrauterine in cephalic presentation with heart rate of 128 bpm. No evidence of placenta previa. Normal amniotic flu id index of 14.8 cm. SL: 131 at 2134 Reported and signed by: Marky Jurado MD [facility] NAME: CHELY DHILLONRadiology Department PHYS: Jose Jaquez [address] : 2000 AGE: 21 SEX: F [place], [place] [address] LOC: Hol[facility]STON PHONE #: [phone] EXAM DATE: 02/01/2022 STATUS: DEP ER FAX #: [phone] RAD NO: Page 1 Signed Report (CONTINUED) Patient Name: Rosario DHILLONit No: [id number] EXAMS: CPT CODE: [id number] US LTD 22281 (Continued) CC: Monae Girard MD; Jose Neff DO Technologist: Keyona Kathleen RDMS Probe: Trnscrbd D/ (2133) GCD.CPS Orig Print D/T: S: 02/01/2022 (2134) [facility] NAME: [facility] Radiology Department PHYS: Jose Jaquez [address] : 2000 AGE: 21 SEX: [place] [address] LOC: [facility]STON PHONE #: [phone] EXAM DATE: 02/01/2022 STATUS: DEP ER FAX #: [phone] RAD NO: Page 2 Signed Report Patient Name: CHELY DHILLON Unit No: [id number] EXAMS: CPT CODE: [id number] US LTD 08914 (Continued) [facility] NAME: [facility] Radiology Department PHYS: Jose Jaquez [address] : 2000AGE: 21 SEX: [place] [address] LOC: [facility]ON PHONE #: [phone] EXAM DATE: 02/01/2022 STATUS: DEP ER FAX #: [phone] RAD NO: Page 3 Signed ReportRUPTURE OF [id number] 02:44:00 Test Item Value Reference Range Interpretation Comments RUPTURE OF MEMBRANES (test code NON-RUPTURED = ROM) - US FET BIO PH AK W/O [id number] 00:00:00 [facility] 2000 Sex: F Patient Name: CHELY DHILLON Unit No: [id number] EXAMS: CPT CODE: [id number] US FET BIO PH AK W/O NST 05793 PROCEDURE INFORMATION: Exam: US Biophysical Profile Without Non-Stress Test Exam date and time: 01/22/2022 11:47 PM Age: 21 years old Clinical indication: Screening exam; Encounter for antenatalscreening of mother; Third trimester (=28 weeks 0 days); ; Additional info: Keenan TECHNIQUE: Imaging protocol: US biophysical profile without non-stress testing. COMPARISON: No relevant prior studies available. FINDINGS: heart rate: 145 bpm Presentation: Vertex Placenta: Located toward thefundus with maturity grade of 3. No placenta previa. Amniotic fluid index: KEENAN is 13.7 cm. BIOPHYSICAL PROFILE: breathing movement (BPP): 2/2 body movement (BPP): 2/2 tone (BPP): 2/2 Amniotic fluid (BPP): 2/2 Biophysical profile score (BPP): 8/8 MATERNAL ANATOMY: Cervix: 2.9 cm in length. Right ovary/adnexa: Right ovary measures 2.0 x 1.2 x 2.4 cm. Left ovary/adnexa: Left ovary measures 2.0 x 1.5 x 1.7 cm. IMPRESSION: Normal biophysical profile score of 8/8. at 0027 Reported and signed by: Javier Ramsay MD CC:Monae Girard MD; Primo Garcia MD Technologist: Darlyn Bailey RDMS Probe: Trnscrbd D/ (0027) GCD.CPS Orig Print D/T: S: 01/23/2022 (0027) [facility] PHYS: Primo Watson [address] : 2000 AGE: 21 SEX: F [place] [address] LOC: [facility]ON PHONE #: [phone] EXAM DATE: 01/22/2022 STATUS: REG ER FAX #: [phone] RAD NO: Page 1 Signed Report Patient Name: CHELY DHILLON Unit No: [id number] EXAMS: CPT CODE: [id number] US FET BIO PH AK W/O NST 43906 (Continued) [facility] PHYS: Primo Watson [address] : 2000 AGE: 21 SEX: F [place] [address] LOC: [facility]li[facility]STON PHONE#: [phone] EXAM DATE: 01/22/2022 STATUS: REG ER FAX #: [phone] RAD NO: Page 2 Signed Report RUPTURE OF [id number] 23:00:00 Test Item Value Reference Range Interpretation Comments RUPTURE OF MEMBRANES (test code NON-RUPTURED = ROM) URINALYSIS [id number] 22:22:00 Test Item Value Reference Range Interpretation Comments UA COLOR (test code = YELLOW YELLOW COLU) UA APPEARANCE (test CLEAR CLEAR code = APPU) UA GLUCOSE DIPSTICK NEGATIVE NEGATIVE (test code = DGLUU) UA BILIRUBIN DIPSTICK NEGATIVE NEGATIVE (test code = BILU) UA KETONE DIPSTICK NEGATIVE NEGATIVE (test code = KETU) UA SPECIFIC GRAVITY <= 1.005 1.001-1.035 N (test code = SGU) UA BLOOD DIPSTICK NEG NEGATIVE (test code = JOSE MANUEL) UA PH DIPSTICK (test 6.0 5-9 code = ABEL) UA PROTEIN DIPSTICK NEGATIVE NEGATIVE (test code = PROU) UA UROBILINIOGEN 0.2 EU/dL See_Comment [Automated DIPSTICK (test code = messag e] The URO) system which generated this result transmit benny reference range : <=1.0. The reference range was not used to interpret this result as normal/abnormal . UA NITRITE DIPSTICK NEGATIVE NEGATIVE (test code = ISREAL) UA LEUKOCYTE ESTERASE NEG NEGATIVE DIPSTICK (test code = LEUU) UA WBC (test code = 0-2 #/hpf NONE SEEN WBCU) UA EPITHELIAL CELLS NONE SEEN #/HPF RARE-FEW (test code = EPIU) UA RBC (test code = 0-2 #/hpf NONE SEEN RBCU) UA BACTERIA (test RARE #/hpf NONE SEEN code = BACU) URINE SAMPLE: CLEAN CATCHRUPTURE OF [id number] 22:17:00 Test Item Value Reference Range Interpretation Comments RUPTURE OF MEMBRANES RUPTURED Previou sly reported (test code = ROM) result: NO N-RUPTURED Edited by: [id number] on 01/22/22:2215RO M prev. reported as:NON-RUPTURED . .
[2022-06-12 02:49] LABS: Urine Blood Negative (Negative); Urine Glucose Negative (Negative); Urine Protein Negative (Negative); Urine pH 7.5 (5.0-7.0)
[2022-06-12 03:23] LABS: MPV 8.3 fL (7.6-11.3)
[2022-06-12] MEDS ORDERED: NA CHLORIDE 0.9% 1,000 ML ONE (03:24)
[2022-06-12] MEDS ORDERED: FAMOTIDINE 20 MG/2 ML VIAL IV ONE (03:24)
[2022-06-12] MEDS ORDERED: MORPHINE 4 MG/ML SYR ONE (03:24)
[2022-06-12 03:29] LABS: Absolute Lymphocytes (CBC) 3.1 K/uL (0.7-4.9); Hematocrit 36.9 % (36.0-45.0); Lymphocytes % 28.6 % (15.3-44.8); MCV 80.8 fL (80-100); RBC Red Blood Cell Count 4.56 M/uL (3.86-4.86)
[2022-06-12 03:35] LABS: Albumin 3.6 g/dL (3.4-5.0); Bilirubin Total 0.4 mg/dL (0.2-1.0); Potassium 3.9 mmol/L (3.5-5.1); Protein, Total 7.6 g/dL (6.4-8.2)
[2022-06-12 03:44] LABS: Urine Bacteria None Seen /HPF (<20); Urine RBC <5 /HPF (None Seen)
[2022-06-12] MEDS ORDERED: PIPERACIL/TAZO 3.375 GM VIAL IV ONE (03:49)
[2022-06-12] MEDS ORDERED: NA CHLORIDE 0.9% 100 ML ONE (03:50)
[2022-06-12] MEDS ORDERED: ACETAMINOPHEN 325 MG TABLET PO PRN (04:13)
[2022-06-12] MEDS ORDERED: ONDANSETRON 4 MG/2 ML VIAL IV PRN (04:13)
[2022-06-12] MEDS: D5 0.45 NS 1,000 ML IV SCH ×3 (04:13→20:30)
[2022-06-12 06:20] VITALS: BMI 29.2
[2022-06-12] MEDS ORDERED: INFLUENZA VACCINE (for 6+ mo) 0.5 ML DOSE IMVAC ONE (08:00)
[2022-06-12] MEDS: FAMOTIDINE 20 MG/2 ML VIAL IV SCH ×2 (08:02→20:30)
[2022-06-12] MEDS: PIPER TAZO 3.375 GM in NA CHLORIDE 0.9% 100 ML IV SCH ×2 (08:02→16:31)
[2022-06-12] MEDS ORDERED: Ringers Lactate 1,000 ML IV ONE (08:17)
[2022-06-12] MEDS ORDERED: BUPIVACAINE 0.25% PF 10 ML VIAL ONE (08:28)
[2022-06-12] MEDS ORDERED: FENTANYL CITR 100 MCG/2 ML ONE ×2 (08:33→09:08)
[2022-06-12] MEDS ORDERED: propofoL 200 MG/20 ML VIAL IV ONE (08:33)
[2022-06-12] MEDS ORDERED: LIDOCAINE 2% MPF 5 ML VIAL ONE (08:33)
[2022-06-12] MEDS ORDERED: ROCURONIUM 50 MG/5 ML VIAL IV ONE (08:33)
[2022-06-12] MEDS ORDERED: MIDAZOLAM HCL 2 MG/2 ML INJ ONE (08:33)
[2022-06-12] MEDS ORDERED: KETOROLAC 30 MG/ML INJ ONE (09:13)
[2022-06-12] MEDS ORDERED: dexAMETHasone 10 MG/ML VIAL ONE (09:13)
[2022-06-12] MEDS ORDERED: ONDANSETRON 4 MG/2 ML VIAL ONE ×2 (09:14→10:01)
[2022-06-12] MEDS ORDERED: GLYCOPYRROLATE 0.2 MG/ML SYR ONE (09:17)
[2022-06-12] MEDS ORDERED: NEOSTIGMINE 1 MG/ML -10 ML VIAL ONE (09:17)
--- NOTE | 2022-06-12 09:31 | P.OP ---
Preoperative diagnosis: Cholecystitis with cholelithiasis Postoperative diagnosis: Cholecystitis with cholelithiasis Primary procedure: Laparoscopic cholecystectomy with ICG Cholangiography Anesthesia: GETA + Local Estimated blood loss: <5cc Specimen: Gallbladder Findings: distended GB, stone in neck Complications: None Transferred to: Recovery Room Condition: Good
[2022-06-12] MEDS: HYDROMORPHONE HCL 1 MG/ML INJ ONE ×2 (09:55→10:00)
[2022-06-12 10:03] VITALS: O2SAT 100
--- NOTE | 2022-06-12 10:32 | P.HP ---
Certification for Inpatient Patient admitted to: Observation With expected LOS: <2 Midnights Patient will require the following post-hospital care: None Practitioner: I am a practitioner with admitting privileges, knowledge of patient current condition, hospital course, and medical plan of care. Services: Services provided to patient in accordance with Admission requirements found in Title 42 Section 412.3 of the Code of Federal Regulations <Torin Echeverria John - Last Filed: 06/12/22 12:54> Patient History Date of Service: 06/12/22 Reason for admission: Epigastric pain History of Present Illness: Patient is a 21-year-old female with a past medical history significant for GERD, anemia, fibromyalgia who presents with complaint of abdominal pain located in the epigastric area. Patient reported that she has been having intermittent abdominal pain for the past 2 months but pain became worse yesterday. Patient reported that pain radiates to her upper quadrants and back. Patient rated pain as 10/10 in severity and described pain as sharp\pressure in quality. Patient reported associated signs and symptoms of dizziness and nausea. Patient denies any other signs and symptoms. Symptoms are aggravated or relieved by nothing. Patient decided to present to the hospital due to worsening symptoms. - Past Medical/Surgical History Has patient received pneumonia vaccine in the past: No Diabetic: No -: anemia -: fibromyalgia -: appendectomy - Family History Family History: Reviewed- Non-Contributory - Social History Smoking Status: Never smoker Alcohol use: Yes CD- Drugs: No Caffeine use: Yes <FabiansallyAyden noguerare Noguera - Last Filed: 06/12/22 12:54> Date of Service: 06/12/22 <Christopher Gannon - Last Filed: 06/12/22 13:57> Allergies frausto Allergy (Verified 03/20/17 04:38) Itching/Hives/Rash frausto flavor Allergy (Verified 03/20/17 18:16) Unknown Latex, Natural Rubber Allergy (Verified 03/20/17 04:38) Itching/Hives/Rash Home Medications: Etonogestrel/Ethinyl Estradiol [Nuvaring Vaginal Ring] 1 each VG ONCE 06/12/22 Review of Systems General: Unremarkable Eyes: Unremarkable ENT: Unremarkable Respiratory: Unremarkable Cardiovascular: Unremarkable Gastrointestinal: Nausea, Abdominal Pain Genitourinary: Unremarkable Musculoskeletal: Unremarkable Integumentary: Unremarkable Neurological: Other (Dizziness) Lymphatics: Unremarkable <Torin Echeverria - Last Filed: 06/12/22 12:54> Physical Examination - Vital Signs Temperature: 97.5 F Blood Pressure: 97/48 Pulse: 57 Respirations: 16 Pulse Ox (%): 100 - Physical Exam General: Alert, In no apparent distress, Oriented x3, Cooperative HEENT: Atraumatic, PERRLA, Mucous membr. moist/pink, EOMI, Sclerae nonicteric Neck: Supple, 2+ carotid pulse no bruit, No LAD, Without JVD or thyroid abnormality Respiratory: Clear to auscultation bilaterally, Normal air movement Cardiovascular: No edema, Regular rate/rhythm, Normal S1 S2 Capillary refill: <2 Seconds Gastrointestinal: Hypoactive, Tenderness Musculoskeletal: No clubbing, No swelling, No tenderness Integumentary: No rashes, No breakdown, No significant lesion Neurological: Normal speech, Normal tone, Normal affect Lymphatics: No axilla or inguinal lymphadenopathy - Studies Laboratory Data (last 24 hrs) 06/12/22 02:58: Sodium 138, Potassium 3.9, BUN 6 L, Creatinine 0.62, Glucose 99, Total Bilirubin 0.4, AST 16, ALT 31, Alkaline Phosphatase 93, Lipase 20 06/12/22 02:58: WBC 10.90, Hgb 12.2, Hct 36.9, Plt Count 348 <Torin Echeverria John - Last Filed: 06/12/22 12:54> - Studies Laboratory Data (last 24 hrs) 06/12/22 02:58: Sodium 138, Potassium 3.9, BUN 6 L, Creatinine 0.62, Glucose 99, Total Bilirubin 0.4, AST 16, ALT 31, Alkaline Phosphatase 93, Lipase 20 06/12/22 02:58: WBC 10.90, Hgb 12.2, Hct 36.9, Plt Count 348 <Christopher Gannon - Last Filed: 06/12/22 13:57> Assessment and Plan - Plan --Acute cholecystitis. Surgeon consulted. Patient placed on antibiotics. Patient had a cholecystectomy. Continue supportive care. -- Acute pain\fibromyalgia. We will manage pain with current pain medication regimen. --Anemia. H&H stable. We will continue to monitor hemoglobin. --Nausea. Antiemetics on board. -- GERD. Patient placed on Protonix. --DVT prophylaxis with SCDs. Discharge Plan: Home Plan to discharge in: 48 Hours - Advance Directives Does patient have a Living Will: No Does patient have a Durable POA for Healthcare: No - Code Status/Comfort Care Code Status Assessed: Yes Physician Review: Patient Assessed, Agree with Above Assessment and Plan Critical Care: No <Torin Echeverria - Last Filed: 06/12/22 12:54> Physician Review: Patient Assessed, Agree with Above Assessment and Plan <Christopher Gannon - Last Filed: 06/12/22 13:57>
--- NOTE | 2022-06-12 11:33 | OP ---
Date of Procedure: 06/12/2022 Surgeon: Vikash Hwang MD, Preoperative Diagnosis: Cholecystitis with cholelithiasis. Postoperative Diagnosis: Cholecystitis with cholelithiasis. Procedure Performed: Laparoscopic cholecystectomy with ICG (indocyanine green cholangiography). Anesthesia: General endotracheal plus local with 0.25% Marcaine. Estimated Blood Loss: Less than 5 cc. Specimen: Gallbladder. Findings: Distended gallbladder with stone in the neck. Complications: None. Disposition: The patient was transferred to the recovery room in good condition. Procedure In Detail: After informed consent was obtained, the patient was brought to the operating r oom, prepped and draped in the usual sterile fashion after adequate anesthesia was achieved. The sup raumbilical area was anesthetized with 0.25% Marcaine, sharply incised. A 5 mm trocar was placed und er direct visualization without evidence of complication. Insufflation was obtained to 15 mmHg at th is time. No injury to vital structures upon entry into the abdomen. Two additional trocars were nahun rich, 1 in the epigastrium and 1 in the right upper quadrant. A 5 mm trocar was placed under direct v isualization without evidence of complication. The umbilical trocar was then upsized to a 12 mm unde r direct visualization without evidence of complication. The patient was positioned head up right si de up. A Ratcheted grasper was used to grasp the patient's gallbladder, placed towards the patient's right shoulder. Dissection continued down to the Lucia pouch area to dissect. Two structures we re identified as both cystic duct and cystic artery. These were both doubly skeletonized and encircl ed at this point. Critical view of safety was obtained at this point. ICG cholangiography was perfo rmed to confirm the confluence of the cystic duct and common duct junction and to confirm the anatomy . This was confirmed at this point verifying the critical view of safety. At this point, double tit anium clips doubly on the proximal side and singly on the distal side of both the cystic duct and cys tic artery. These structures were ligated using Endo Xuan. The gallbladder was removed from the h epatic fossa without evidence of complication, placed in EndoCatch bag, removed the umbilical trocar and sent off for pathologic examination. The abdomen was re-insufflated at this point. The area was copiously irrigated. Clips were found to be in good anatomic position without spillage of blood or bile. The remaining outflow was suctioned out at this point. The patient was positioned back in a n eutral position. The effluent was suctioned out. The 12 mm trocar site was then closed using a Juan Hester suture passer with 0 Vicryl in a running fashion with good approximation of tissues. The abdomen was completely desufflated under direct visualization without evidence of complication. All remaining trocars were removed. All skin incisions were then copiously irrigated, closed with a 4-0 Monocryl in a running fashion. Dermabond placed over top. The patient tolerated the procedure well without evidence of complication and transferred to PACU in good condition. All counts were correct at the end of the case. JAYSON/ALL Voice ID: [id number] Report ID: [id number]
--- NOTE | 2022-06-12 11:49 | HP ---
Date of Admission: 06/12/2022 Brief History Of Present Illness: The patient is a 21-year-old female, who has epigastric and right upper quadrant abdominal pain with radiation to her back associated with eating a greasy meal earlier in the day. She says she has had several episodes before like this in the past and has gotten progr essively worse after she her child earlier this year. She states that on this particular occasion, a ssociated with severe pain, particularly in the epigastric with radiation to the back. Her prior epi sodes were not at this level of severity. She has had multiple episodes beginning back in January this year. She cannot count the number of times this occurred, but has been multiple by her descri ption. She has had no sick contacts. No recent travel. No new food exposures by her description. Past Medical History: Negative. Past Surgical History: Negative. Allergies: NO KNOWN DRUG ALLERGIES. Medications: None. Social History: She denies smoking, alcohol, or recreational drug use. 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 Review of Systems: A 10-point review of systems other than HPI, denies. Physical Examination: At the time of my examination; her BMI is 30, her blood pressure 118/57, pulse is 90, respiratory rat e 14, temperature 97.2. Laboratory Data: White blood cell count is 10.9, hemoglobin is 12.2, hematocrit of 36.9, platelet co unt is 348. Her sodium 138, potassium 3.9, chloride 109, carbon dioxide 25, BUN 6, creatinine 0.6, g lucose is 99, total bilirubin 0.4, AST is 16, ALT 31, alkaline phosphatase 93, lipase is 20. UA is e ssentially negative. test was negative. She had imaging performed, which included an ultr asound of gallbladder, which was officially read as gallbladder neck stone with mild gallbladder wall thickening and trace pericholecystic fluid. Findings suggest acute cholecystitis in the appropriate clinical context. Assessment And Plan: This is a 21-year-old female, comes in with signs and symptoms of acute calculo us cholecystitis. 1.IV fluid hydration. 2.Antibiotic coverage. 3.I have explained the risks, benefits, and alternatives of laparoscopic possible open cholecystecto my with indocyanine green cholangiography including, but not limited to bleeding, infection, damage t o surrounding tissues, injury to bile ducts, intestines, need for further operations and procedure. The patient agrees to proceed as indicated. JYASON/ALL Voice ID: [id number]
[2022-06-12 12:24] LABS: Phosphorus 2.5 mg/dL (2.5-4.9)
[2022-06-12] MEDS ORDERED: SODIUM CHLORIDE 0.9% 10ML INJ IV PRN (12:53)
[2022-06-12] MEDS: PANTOPRAZOLE 40 MG INJ IVP SCH (13:10)
[2022-06-12] MEDS: HYDROCODONE/APAP 5/325 MG TAB PO PRN ×2 (13:12→20:30)
[2022-06-12] MEDS: MORPHINE 4 MG/ML SYR IV PRN (16:36)
--- NOTE | 2022-06-12 16:52 | RAD REPORT ---
EXAM DESCRIPTION: US - Abdomen Exam Limited - 06/12/2022 3:17 am CLINICAL HISTORY: The patient is 21 years old and is Female; ABD PAIN REPORTEDLY NEGATIVE SONOG RAPHIC LEE'S SIGN TECHNIQUE: Real-time ultrasound of the right upper quadrant with image documentation. COMPARISON: No relevant prior studies available. FINDINGS: GALLBLADDER: Gallbladder neck stone, w ith mild gallbladder wall thickening and trace pericholecystic free fluid. COMMON BILE DUCT: Unremarkable as visualized. No stones. No dilation. Common bile duct measures 0.4 cm in diameter. IMPRESSION: Gallbladder neck stone, with mild gallbladder wall thickening and trace pericholecystic free fluid. Findings suggest acute cholecystitis in the appropriate clinical context. If clinical pic ture is equivocal, confirmation by HIDA scan could be performed. Electronically signed by: Rico Damon MD 06/12/2022 4:50 AM CDT Due to temporary technical issues with the PACS/Fluency reporting system, reports are being signed by the in house radiologists without review as a courtesy to insure prompt reporting. The interpreting radiologist is fully responsible for the content of the report.
[2022-06-13] MEDS: MORPHINE 4 MG/ML SYR IV PRN (01:11)
[2022-06-13] MEDS: D5 0.45 NS 1,000 ML IV SCH (03:54)
[2022-06-13] MEDS: HYDROCODONE/APAP 5/325 MG TAB PO PRN ×2 (03:54→09:39)
[2022-06-13 04:59] LABS: Hematocrit 34.2 % (36.0-45.0)
--- NOTE | 2022-06-13 06:49 | P.DS ---
Admission Date: 06/12/22 Discharge Date: 06/13/22 Primary Care Provider: Veronica Gomes NP Disposition: ROUTINE DISCHARGE Discharge Condition: GOOD Reason for Admission: Epigastric pain Consultations: 1. General Surgery Procedures: - 06/12/2022 - Laparoscopic Cholecystectomy with ICG (Indocyanine Green Cholangiography) Hospital Course: DIAGNOSES: # Acute Cholecystitis with Cholelithiasis # Gastroesophageal Reflux Disease # Fibromyalgia HOSPITAL COURSE: Ms. Chely Dhillon is a 21 year old female with a past medical history significant for fibromyalgia and gastroesophageal reflux disease who was admitted to the [facility] on 06/12/2012 for abdominal pain. She was admitted to the Medicine service. Upon further evaluation, her abdominal ultrasound revealed, "gallbladder neck stone, with mild gallbladder wall thickening and trace pericholecystic free fluid. Findings suggest acute cholecystitis in the appropriate clinical context. If clinical picture is equivocal, confirmation by HIDA scan could be performed." General Surgery was consulted and she was evaluated by Dr. Hwang. She underwent laparoscopic cholecystectomy with ICG (indocyanine green cholangiography), and tolerated the procedure well without any apparent complications. She was cleared for discharge home from a surgical standpoint. Dr. Hwang has provided her with pain medication through his outpatient clinic. On 06/13/2022, she was seen on morning rounds and deemed medically stable for discharge. She was discharged with instructions to schedule follow-up appointments with her PCP (JONATAN Gomes) and with General Surgery (Dr. Hwang). She was given the opportunity to ask questions and reported no further questions. Furthermore, all questions were answered to the best of my ability. A copy of this discharge summary will be sent to the above providers to facilitate continuity of care. Today, I personally spent 20 minutes on her case, of which greater than 50% of the time was spent in patient education, counseling, and coordination of care as described above. Vital Signs/Physical Exam: Temp Pulse Resp BP Pulse Ox 97.8 F 61 15 114/56 L 97 06/13/22 04:00 06/13/22 04:00 06/13/22 04:00 06/13/22 04:00 06/13/22 04:00 General: Alert, In no apparent distress, Oriented x3 HEENT: Atraumatic, Mucous membr. moist/pink, EOMI, Sclerae nonicteric Neck: JVD not distended Respiratory: Clear to auscultation bilaterally, Normal air movement Cardiovascular: No edema, Regular rate/rhythm, Normal S1 S2, No gallops, No rubs, No murmurs Gastrointestinal: Normal bowel sounds, Soft and benign, Non-distended, No tenderness, No rebound, No guarding, Other (three laparoscopic incisions are clean, dry, and intact) Musculoskeletal: No clubbing Integumentary: No rashes Neurological: Normal speech, Normal affect Other Physical/Emotional Findings: Examined alongside charge nurse: Felisha Perez RN Laboratory Data at Discharge: WBC 10.90 K/uL (4.3-10.9) 06/12/22 02:58 Hgb 11.3 g/dL (12.0-15.0) L 06/13/22 04:20 Hct 34.2 % (36.0-45.0) L 06/13/22 04:20 Plt Count 348 K/uL (152-406) 06/12/22 02:58 Sodium 138 mmol/L (136-145) 06/12/22 02:58 Potassium 3.9 mmol/L (3.5-5.1) 06/12/22 02:58 BUN 6 mg/dL (7-18) L 06/12/22 02:58 Creatinine 0.62 mg/dL (0.55-1.02) 06/12/22 02:58 Glucose 99 mg/dL (74-106) 06/12/22 02:58 Phosphorus 2.5 mg/dL (2.5-4.9) 06/12/22 11:57 Magnesium 2.0 mg/dL (1.6-2.4) 06/12/22 11:57 Total Bilirubin 0.4 mg/dL (0.2-1.0) 06/12/22 02:58 AST 16 U/L (15-37) 06/12/22 02:58 ALT 31 U/L (13-56) 06/12/22 02:58 Alkaline Phosphatase 93 U/L (45-117) 06/12/22 02:58 Triglycerides 88 mg/dL (<150) 06/12/22 11:57 Cholesterol 158 mg/dL (<200) 06/12/22 11:57 HDL Cholesterol 44 mg/dL (40-60) 06/12/22 11:57 Cholesterol/HDL Ratio 3.59 06/12/22 11:57 Lipase 20 U/L (13-75) 06/12/22 02:58 Home Medications: RX: Etonogestrel/Ethinyl Estradiol [Nuvaring Vaginal Ring] 1 each VG ONCE 06/12/22 RX: Acetaminophen [Tylenol*] 650 mg PO Q6H PRN tab 06/13/22 Physician Discharge Instructions: 1. Please call and schedule a follow-up appointment with your PCP (JONATAN Gomes) in 3-5 days 2. Please call and schedule a follow-up appointment with General Surgery (Dr. Hwang) in 5-7 days Diet: Wiggins Activity: No lifting more than 10 lbs Followup: Veronica Gomes NP [Primary Care Provider] - (call to schedule appointment.) Vikash Hwang MD [ACTIVE - CAN ADMIT] - (Call to schedule appointment.) Time spent managing pt's care (in minutes): 20
[2022-06-13 08:15] VITALS: BP 112/59
[2022-06-13] MEDS: PANTOPRAZOLE 40 MG INJ IVP SCH (08:57)
[2022-06-13] MEDS: FAMOTIDINE 20 MG/2 ML VIAL IV SCH (08:58)
[2022-06-13] MEDS ORDERED: AMOX/K CLAV 875 MG TAB PO ONE (09:33)
[2022-06-13 09:34] VITALS: TEMP 98.3
== END 2022-06-13 10:30 | disposition home or self-care (01) ==
LOC: ER 02:03 → ERHOLD 03:26 → 2ND 05:54
PROVIDERS: ADMIT Surgery; ATTEND Internal Medicine
PROC: BF13YZZ Fluoroscopy of Gallbladder and Bile Ducts using Other Contrast (ICD-10-PCS; 2022-06-12)
PROC: 0FT44ZZ Resection of Gallbladder, Percutaneous Endoscopic Approach (ICD-10-PCS; principal; 2022-06-12 09:00)
DX: K80.12 Calculus of gallbladder with acute and chronic cholecystitis without obstruction (principal); K21.9 Gastro-esophageal reflux disease without esophagitis; D64.9 Anemia, unspecified; M79.7 Fibromyalgia; Z20.822 Contact with and (suspected) exposure to COVID-19
CPT/HCPCS: 96365; 96361; 85025; 36415 ×2; 83735; 81025; 84100; 80061; 88304; 85018; 85014; 83036; 83690; 80053; 76705; 96375; 99285; 47563; U0003; J2704; J2710; J2543 ×3; J2001; C9113 ×3; J2250; J3010 ×2; J1100; J1170; J2405 ×2; J7799 ×3; J7120; J7030; 81003; 81015